=== PATIENT | female | born 1945 | race Caucasian/White ===

== ENCOUNTER 2017-10-17 11:53 | Emergency (ER) | payer MEDICARE, OTHER ==
[~2017-10-17] VITALS: Ht 165.1 cm; Wt 69.0 kg
--- OUTSIDE RECORDS SUMMARY | ~2017-10-17 | XMS | Clinical Summary ---
Demographics + + + | Address | [address] | | | [place] [address] | + + + | Home Phone | | + + + | Preferred Language | Unknown | + + + | Marital Status | Unknown | + + + | Lutheran Affiliation | Unknown | + + + | Race | Unknown | + + + | Ethnic Group | Unknown | + + + Author + + + | Author | [facility] | [facility] | + + + | Organization | [facility] | | | and [place] | + + + | Address | Unknown | + + + | Phone | Unavailable | + + + Care Team Providers + +------+ + | Care Radiology Supervisor Name | Role | Phone | + +------+ + PP | Unavailable | + +------+ + Allergies Not on File Current Medications Not on file Active Problems Not on file Social History + +-------+ +--------+------+ | Tobacco Use | Types | Packs/Day | Years | Date | | | | | Used | | + +-------+ +--------+------+ | Never Assessed | | | | | + +-------+ +--------+------+ + + + | Sex Assigned at | Date Recorded | | | | + + + | Not on file | | + + + Plan of Treatment + + + + + | Health Maintenance | Due Date | Last Done | Comments | + + + + + | Hepatitis C | | | | | Screening | 6 | | | + + + + + | Vaccine: | | | | | Dtap/Tdap/Td (1 - | 5 | | | | Tdap) | | | | + + + + + | BREAST CANCER | | | | | SCREENING (MAMM Q2 | 6 | | | | YEARS 50-74) | | | | + + + + + | COLON CANCER | | | | | SCREENING | 6 | | | | (COLONOSCOPY EVERY | | | | | 10 YEARS 50-75) | | | | + + + + + | Vaccine: | | | | | Pneumococcal 65+ | 1 | | | | Low/Medium Risk (1 | | | | | of 2 - PCV13) | | | | + + + + + | Vaccine: Influenza | | | | | (Season Ended) | 8 | | | + + + + + Results Not on filefrom Last 3 Months"
--- OUTSIDE RECORDS SUMMARY | ~2017-10-17 | XMS | Clinical Summary ---
Demographics + + + | Address | [address] | | | [place] [address] | + + + | Home Phone | | + + + | Preferred Language | Unknown | + + + | Marital Status | Unknown | + + + | Yazdanism Affiliation | Unknown | + + + | Race | Unknown | + + + | Ethnic Group | Unknown | + + + Author + + + | Author | [facility] | | | [facility] | + + + | Organization | [facility] | | | and [place] | + + + | Address | Unknown | + + + | Phone | Unavailable | + + + Care Team Providers + +------+ + | Care Facilities Maintenance Technician Name | Role | Phone | + [...]
--- OUTSIDE RECORDS SUMMARY | ~2017-10-17 | XMS | Clinical Summary ---
Demographics + + + | Address | [address] | | | [place] [address] | + + + | Home Phone | | + + + | Preferred Language | Unknown | + + + | Marital Status | | + + + | Jehovah'S Witness Affiliation | Unknown | + + + [...] | + + + + + | DREW BARCLAY | [place] | [place] | | + + + + + Care Team Providers + +------+ + | Care Track Fitter Name | Role | Phone | + +------+ + PP | Unavailable | + +------+ + Source Comments ALA[facility] is fully live on both [facility] and [facility] InPatient.[facility] Allergies Not on File Current Medications Not [...] | + + + + + | INFLUENZA VACCINE | | | | | (FLU SHOT) | 8 | | | + + + + + Results Not on filefrom Last 3 Months"
--- OUTSIDE RECORDS SUMMARY | ~2017-10-17 | XMS | Clinical Summary ---
Demographics + + + | Address | [address] | | | [place] [address] | + + + | Home Phone | | + + + | Preferred Language | Unknown | + + + | Marital Status | | + + + | Scientology Affiliation | Unknown | + + + [...] Team Providers + +------+ + | Care Morning Nanny Name | Role | Phone | + +------+ + PP | Unavailable | + +------+ + Source Comments ALAINA is fully live on both [facility] Ambulatory and [facility] InPatient.[facility] Allergies Not on File Current Medications Not [...]
[~2017-10-17 11:53] MED LIST: AMITRIPTYLINE H10 MG PO; AMITRIPTYLINE H25 MG PO; CALCIUM 600 +1 EAC1 PO; CALCIUM500 M1 PO; CLONIDINE HCL0.1 MG PO; EXCEDRIN MIGRA1 EAC2 PO; FEROSUL325 MG PO; GLUCOSAMINE &1 EAC1 PO; HYDROCODON-ACE1 EA11 PO; HYDROMORPHONE HC4 MG PO; LACTULOSE10 GM/15 M PO; LEVOTHYROXINE88 MCG PO; MACUVITE WITH1 EACH PO; MILK OF MA400 MG/5 M PO; MIRALAX17 GM PO; MULTI VITAMIN1 EACH PO; NUCYNTA50 MG PO; OMEGA 3 1,0001 EACH PO; OMEGA-3 + D SO1 EACH PO; OXYCODONE HCL5 MG PO; PROPRANOLOL HCL40 MG PO; TRAMADOL HCL50 MG PO; VISTARIL25 MG PO; VITAMIN C500 M1 PO; VITAMIN D1000 UNIT PO; XARELTO10 MG PO
[2017-10-17] MEDS ORDERED: TOPAMAX200 MG PO (12:16)
[2017-10-17] MEDS ORDERED: CIPRO250 MG PO (12:49)
== END 2017-10-17 13:06 | disposition home or self-care (01) ==
LOC: ED 11:53
DX: N39.0 Urinary tract infection, site not specified (principal); R31.9 Hematuria, unspecified; Z88.2 Allergy status to sulfonamides; Z88.1 Allergy status to other antibiotic agents; Z88.8 Allergy status to other drugs, medicaments and biological substances; Z91.011 Allergy to milk products; Z79.899 Other long term (current) drug therapy
CPT/HCPCS: 81001; 99283

== ENCOUNTER 2019-05-28 19:46 | Emergency (ER) | payer MEDICARE, OTHER ==
[~2019-05-28] VITALS: Ht 165.1 cm; Wt 69.0 kg
--- OUTSIDE RECORDS SUMMARY | ~2019-05-28 | XMS | Clinical Summary ---
Demographics + + + | Address | [address] | | | [place] [address] | + + + | Home Phone | | + + + | Preferred Language | Unknown | + + + | Marital Status | | + + + | Taoist Affiliation | 1013 | + + + | Race | Unknown | + + + | Ethnic Group | Unknown | + + + Author + + + | Author | [facility] | | | and [place] | + + + | Organization | [facility] | | | and [place] | + + + | Address | Unknown | + + + | Phone | Unavailable | + + + Support + + + + + | Name | Relationship | Address | Phone | + + + + + | Mak Ramires | ECON | [address], | | | | | [place] [address] | | + + + + + Care Team Providers + +------+ + | Care Software Test Analyst Name | Role | Phone | + +------+ + | Mehrdad Avila DO | PCP | | + +------+ + Allergies + + + + + + | Active Allergy | Reactions | Severity | Noted | Comments | | | | | Date | | + + + + + + | Food | Shortness Of Breath, | High | 09/08/19 | PEPPERS | | | Swelling, Cough | | 19 | | + + + + + + | Neomycin | Dermatitis, Other | High | | Inflammation | | | (See Comments) | | | | + + + + + + | Oxycodone | Nausea And Vomiting | Medium | 09/09/19 | | | | | | 12 | | + + + + + + | Scopolamine | Other (See Comments) | High | 09/08/19 | Mental changes | | | | | 19 | | + + + + + + | Sulfa Antibiotics | Anaphylaxis | High | | | + + + + + + Medications + + + +---------+------+------+-------+ | Medication | Sig | Dispensed | Refills | Star | End | Statu | | | | | | t | Date | s | | | | | | Date | | | + + + +---------+------+------+-------+ | amitriptyline | Take 2.5 mg by mouth | | 0 | | | Activ | | (ELAVIL) 10 mg | nightly. | | | | | e | | tablet | | | | | | | + + + +---------+------+------+-------+ | Calcium Carbonate | Take by mouth. | | 0 | | | Activ | | (CALCIUM 600 PO) | | | | | | e | + + + +---------+------+------+-------+ | Multiple | Take by mouth. | | 0 | | | Activ | | Vitamins-Minerals | | | | | | e | | (CENTRUM SILVER | | | | | | | | 50+WOMEN PO) | | | | | | | + + + +---------+------+------+-------+ | | Take 1 tablet by | | 0 | | | Activ | | aspirin-acetaminophe | mouth every 6 hours | | | | | e | | n-caffeine (EXCEDRIN | as needed for Pain. | | | | | | | MIGRAINE) | | | | | | | | 250-250-65 MG per | | | | | | | | tablet | | | | | | | + + + +---------+------+------+-------+ | Multiple | Take by mouth. | | 0 | | | Activ | | Vitamins-Minerals | | | | | | e | | ([facility] | | | | | | | | FORMULA PO) | | | | | | | + + + +---------+------+------+-------+ | polyethylene | Take 17 g by mouth | | 0 | | | Activ | | glycol (MIRALAX) | Daily as needed for | | | | | e | | powder | Constipation. | | | | | | + + + +---------+------+------+-------+ | [place]-3 Fatty | Take by mouth. | | 0 | | | Activ | | Acids (PRO NUTRIENTS | | | | | | e | | OMEGA 3) 332.5 MG | | | | | | | | CPDR | | | | | | | + + + +---------+------+------+-------+ | topiramate | Take 50 mg by mouth | | 0 | | | Activ | | (TROKENDI XR) 25 mg | Daily. | | | | | e | | ER capsule | | | | | | | + + + +---------+------+------+-------+ | cholecalciferol | Take 1,000 Units by | | 0 | | | Activ | | (CHOLECALCIFEROL) | mouth Daily. | | | | | e | | 1000 units TABS | | | | | | | + + + +---------+------+------+-------+ | ciclopirox | Apply topically | | 0 | 02/0 | | Activ | | (PENLAC) 8 % | nightly. | | | 11/08 | | e | | solution | | | | 19 | | | + + + +---------+------+------+-------+ | propranolol | take 120 mg by mouth | | 0 | | | Activ | | (INDERAL) 40 mg | daily | | | | | e | | tablet | | | | | | | + + + +---------+------+------+-------+ | terbinafine | Take 250 mg by mouth | | 0 | | | Activ | | (LAMISIL) 250 MG | Daily. Take for | | | | | e | | tablet | seven days every | | | | | | | | three months. | | | | | | + + + +---------+------+------+-------+ | levothyroxine | Take 1 tablet by | 90 | 3 | 11/20 | | Activ | | (SYNTHROID) 100 mcg | mouth every morning | tablet | | 02/08 | | e | | tabletIndications: | (before breakfast). | | | 19 | | | | Hypothyroidism, | | | | | | | | unspecified type | | | | | | | + + + +---------+------+------+-------+ | fluticasone | 1 spray by Nasal | 15.8 mL | 11 | 06/ | | Activ | | (FLONASE) 50 | route Daily. | | | 8/20 | | e | | mcg/nasal spray | | | | 19 | | | + + + +---------+------+------+-------+ | Levocetirizine | Take by mouth | | 0 | | | Activ | | Dihydrochloride | Daily. | | | | | e | | (XYZAL PO) | | | | | | | + + + +---------+------+------+-------+ | FLUoxetine | Take 1 capsule by | 90 | 1 | 10/0 | | Activ | | (PROZAC) 10 mg | mouth daily (with | capsule | | 3/20 | | e | | capsuleIndications: | breakfast). | | | 19 | | | | Seasonal affective | | | | | | | | disorder (HCC) | | | | | | | + + + +---------+------+------+-------+ Active Problems + + + | Problem | Noted Date | + + + | Seasonal affective disorder | 09/07/2018 | + + + | Hypothyroidism | 09/07/2018 | + + + | Anemia | 09/07/2018 | + + + | Migraine headache | | + + + | Osteoporosis, post-menopausal | | + + + | Familial tremor | | + + + | Allergic rhinitis | | + + + Encounters +--------+---------+ + + + | Date | Type | Specialty | Care Team | Description | +--------+---------+ + + + | 03/24/ | Office | Primary Care | Mehrdad Avila | Seasonal affective | | 2019 | Visit | | E, DO | disorder (HCC) | | | | | | (Primary Dx); | | | | | | Immunization due | +--------+---------+ + + + from Last 3 Months Immunizations + + + + | Name | Administration Dates | Next Due | + + + + | HEP B, 3 DOSE | 03/25/2005, 12/30/2004 | | | (ADULT) | | | + + + + | INFLUENZA 66 Y OR >, | 03/26/2019, 03/18/2018, 04/10/2016, | | | TRIVALENT HIGH-DOSE | 03/08/2014 | | + + + + | INFLUENZA PF | 02/17/2017 | | | QUAD(PED/ADOL/ADULT) | | | | ,PSKT or VIAL | | | + + + + | INFLUENZA TRIV | 04/27/2015, 03/16/2013, 03/25/2012, | | | W/PRES(PED/ADOL/ADUL | 04/28/2011 | | | T),MULTIDOSE | | | + + + + | INFLUENZA, | 02/17/2017, 04/27/2015, 03/16/2013, | | | UNSPECIFIED | 03/25/2012, 04/28/2011, 04/05/2010, | | | FORMULATION | 02/21/2009, 04/11/2008, 04/03/2007, | | | | 03/25/2006, 05/07/2005 | | + + + + | PNEUMOCOCCAL | 12/12/2014 | | | CONJUGATE 13-VALENT | | | | (PCV13) | | | + + + + | PNEUMOCOCCAL | 04/28/2011 | | | POLYSACCHARIDE | | | | 23-VALENT (PPSV23) | | | + + + + | TD PF (2 LF TETANUS) | 09/24/1999 | | | (ADOL/ADULT) | | | + + + + | TDAP, (ADOL/ADULT) | 02/17/2017 | | + + + + | TYPHOID, VICPS | 12/30/2004 | | + + + + | YELLOW FEVER, SQ | 12/30/2004 | | | (LIVE) | | | + + + + | ZOSTER NON-LIVE | 12/19/2017, 10/10/2017 | | | (SHINGRIX) | | | + + + + | ZOSTER, 1 DOSE | 12/02/2006 | | | (ZOSTAVAX) | | | + + + + Family History + + +------+ + | Medical History | Relation | Name | Comments | + + +------+ + | Heart disease | Father | | | + + +------+ + | Stroke | [place] | | [place] | + + +------+ + | Diabetes | Maternal | | | | | Grandmoth | | | | | er | | | + + +------+ + | Alzheimer's disease | Mother | | | + + +------+ + | Other (see comment) | Sister | | spinal stenosis | + + +------+ + + +------+ + + | Relation | Name | Status | Comments | + +------+ + + | Father | | | | + +------+ + + | Maternal Grandmother | | | | + +------+ + + | Mother | | | | + +------+ + + | Sister | | | | + +------+ + + Social History + +-------+ +--------+------+ | Tobacco Use | Types | Packs/Day | Years | Date | | | | | Used | | + +-------+ +--------+------+ | Never Smoker | | 0 | 0 | | + +-------+ +--------+------+ + +---+---+---+ | Smokeless Tobacco: | | | | | Never Used | | | | + +---+---+---+ + + | Tobacco Cessation: Counseling Given: No | + + + + +---------+ + | Alcohol Use | Drinks/Week | oz/Week | Comments | + + +---------+ + | No | 0 Glasses of wine | 0.0 | | | | 0 Cans of beer 0 | | | | | Shots of liquor 0 | | | | | Standard drinks or | | | | | equivalent | | | + + +---------+ + + + + + | Alcohol Habits | Answer | Date Recorded | + + + + | How often do you have a drink containing | Never | 03/24/2019 | | alcohol? | | | + + + + | How many drinks containing alcohol do you | Not asked | | | have on a typical day when you are | | | | drinking? | | | + + + + | How often do you have six or more drinks on | Never | 03/24/2019 | | one occasion? | | | + + + + + + + | Sex Assigned at | Date Recorded | | | | + + + | Female | 03/20/2019 1:22 PM PDT | + + + + + + + | Job Start Date | Occupation | Industry | + + + + | Not on file | Not on file | Not on file | + + + + + + + + | Travel History | Travel Start | Travel End | + + + + + + | No recent travel history available. | + + Last Filed Vital Signs + + + + + | Vital Sign | Reading | Time Taken | Comments | + + + + + | Blood Pressure | 132/74 | 03/24/2019 8:29 AM | Med cuff, right arm | | | | PDT | | + + + + + | Pulse | 50 | 03/24/2019 8:29 AM | R | | | | PDT | | + + + + + | Temperature | - | - | | + + + + + | Respiratory Rate | 16 | 03/24/2019 8:29 AM | | | | | PDT | | + + + + + | Oxygen Saturation | 98% | 03/24/2019 8:29 AM | RA | | | | PDT | | + + + + + | Inhaled Oxygen | - | - | | | Concentration | | | | + + + + + | Weight | 70.4 kg (155 lb 3.2 | 03/24/2019 8:29 AM | | | | oz) | PDT | | + + + + + | Height | 166 cm (5' 5.35") | 03/24/2019 8:29 AM | Stated | | | | PDT | | + + + + + | Body Mass Index | 25.55 | 03/24/2019 8:29 AM | | | | | PDT | | + + + + + Plan of Treatment + + + + + | Health Maintenance | Due Date | Last Done | Comments | + + + + + | Hepatitis C | | | | | Screening | 6 | | | + + + + + | Breast Cancer | | | | | Screening | 1 | | | + + + + + | Adult Annual | | | | | Wellness Visit | 9 | | | + + + + + | Primary Care | | 03/24/2019, 09/07/2018 | | | Outreach (Low Risk) | 1 | | | + + + + + | Colorectal Cancer | | 06/26/2014, 06/26/2014 | | | Screening | 5 | | | | (Colonoscopy) | | | | + + + + + | Vaccine: | | 02/17/2017, 09/24/1999 | | | Dtap/Tdap/Td (2 - | 7 | | | | Td) | | | | + + + + + | Vaccine: | Completed | 12/12/2014, 04/28/2011 | | | Pneumococcal 65+ | | | | + + + + + | Vaccine: Influenza | Completed | 03/26/2019, 03/18/2018, | | | | | 02/17/2017, Additional history | | | | | exists | | + + + + + Results Not on filefrom Last 3 Months Insurance + +--------+ +--------+ +---------+--------+ | Payer | Benefi | Subscriber | Effect | Phone | Address | Type | | | t Plan | ID | leah | | | | | | / | | Dates | | | | | | Group | | | | | | + +--------+ +--------+ +---------+--------+ | MEDICARE | MEDICA | [id number] | 01/21/20 | [phone] | | Medica | | | RE | | 11-Pre | 5 | | re | | | PART A | | sent | | | | | | AND B | | | | | | + +--------+ +--------+ +---------+--------+ | [employer] | MODA | [id number] | | | | Medica | | | HEALTH | | 019-Pr | | | re | | | MDCR | | esent | | | | + +--------+ +--------+ +---------+--------+ + +--------+ +--------+ + + | Guarantor Name | Accoun | Relation to | Date | Phone | Billing Address | | | t Type | Patient | of | | | | | | | | | | + +--------+ +--------+ + + | Antonia Ramires | Person | Self [birth year] | [address] | | | al/Fam | | 1945 | [phone] | [place] [address] | | | darell | | | 0 (Home) | | + +--------+ +--------+ + + Advance Directives + + + + + | Type | Date Recorded | Patient | Explanation | | | | Senior Field Service Engineer | | + + + + + | Power of | | | | | Thread Singer | | | | + + + + + | Advance | 09/07/2018 10:02 | | | | Directive | AM | | | + + + + +
--- OUTSIDE RECORDS SUMMARY | ~2019-05-28 | XMS | Encounter Summary ---
Demographics + + + | Address | [address] | | | [place] [address] | + + + | Home Phone | | + + + | Preferred Language | Unknown | + + + | Marital Status | | + + + | Catholic Affiliation | 1013 | + + + | Race | Unknown | + + + | Ethnic Group | Unknown | + + + Author + + + | Author | [facility] | | | and [place] | + + + | Organization | [facility] | | | and [place] | + + + | Address | Unknown | + + + | Phone | Unavailable | + + + Support + + + + + | Name | Relationship | Address | Phone | + + + + + | Mak Ramires | ECON | [address], | | | | | [place] [address] | | + + + + + Care Team Providers + +------+ + | Care Web Press Operator Helper Offset Name | Role | Phone | + +------+ + PCP | Unavailable | + +------+ + Encounter Details +--------+ + + + + | Date | Type | Department | Care Team | Description | +--------+ + + + + | 03/15/ | Hospital | [facility] | | | | 1997 | Encounter | MED CTR GENERIC OP | | | | | | CONV DEPT [address] | | | | | | [place], | | | | | | [place] [address] | | | | | | [phone] | | | +--------+ + + + + Social History + +-------+ +--------+------+ | Tobacco Use | Types | Packs/Day | Years | Date | | | | | Used | | + +-------+ +--------+------+ | Never Assessed | | | | | + +-------+ +--------+------+ + + + | Sex Assigned at | Date Recorded | | | | + + + | Female | | + + + + + [...] recent travel history available. | + + documented as of this encounter Plan of Treatment Not on filedocumented as of this encounter Visit Diagnoses Not on filedocumented in this encounter"
--- OUTSIDE RECORDS SUMMARY | ~2019-05-28 | XMS | Encounter Summary ---
Demographics + + + | Address | [address] | | | [place] [address] | + + + | Home Phone | | + + + | Preferred Language | Unknown | + + + | Marital Status | | + + + | Roman Catholic Affiliation | 1013 | + + + | Race | Unknown | + + + | Ethnic Group | Unknown | + + + Author + + + | Author | [facility] | | | and [place] | + + + | Organization | [facility] | | | and [place] | + + + | Address | Unknown | + + + | Phone | Unavailable | + + + Support + + + + + | Name | Relationship | Address | Phone | + + + + + | Mak Ramires | ECON | [address], | | | | | [place] [address] | | + + + + + Care Team Providers + +------+ + | Care Ornamental Brick Installer Name | Role | Phone | + +------+ + PCP | Unavailable | + +------+ + Encounter Details +--------+ + + + + | Date | Type | Department | Care Team | Description | +--------+ + + + + | 11/23/ | [facility] | [facility] | [place], | | | 1998 | Encounter | MED CTR GENERIC OP | MD [address] [facility] | | | | | CONV DEPT [address] | [place] | | | | | [place], | [address] | | | | | [place] [address] | | | | | | [phone] | | | +--------+ + + + [...]
--- OUTSIDE RECORDS SUMMARY | ~2019-05-28 | XMS | Encounter Summary ---
Demographics + + + | Address | [address] | | | [place] [address] | + + + | Home Phone | | + + + | Preferred Language | Unknown | + + + | Marital Status | | + + + | Evangelical Affiliation | 1013 | + + + | Race | Unknown | + + + | Ethnic Group | Unknown | + + + Author + + + | Author | [facility] | | | and [place] | + + + | Organization | [facility] | | | and [place] | + + + | Address | Unknown | + + + | Phone | Unavailable | + + + Support + + + + + | Name | Relationship | Address | Phone | + + + + + | Mak Ramires | ECON | [address], | | | | | [place] [address] | | + + + + + Care Team Providers + +------+ + | Care Line Server Name | Role | Phone | + +------+ + | Mehrdad Avila DO | PCP | | + +------+ + Encounter Details +--------+ + + + + | Date | Type | Department | Care Team | Description | +--------+ + + + + | 09/03/ | Abstract | [facility] | [place] | | | 2019 | | [facility] | | | | | | [facility] [address] | | | | | | [address] [place], | | | | | | [place] [address] | | | | | | [phone] | | | +--------+ + + + + Social History + +-------+ +--------+------+ | Tobacco Use | Types | Packs/Day | Years | Date | | | | | Used | | + +-------+ +--------+------+ | Never Smoker | | | | | + +-------+ +--------+------+ + +---+---+---+ | Smokeless Tobacco: | | | | | Never Used | | | | + +---+---+---+ + + +---------+ + | Alcohol Use | Drinks/Week | oz/Week | Comments | + + +---------+ + | No | | | | + + +---------+ + + + + | Sex Assigned [...]
--- OUTSIDE RECORDS SUMMARY | ~2019-05-28 | XMS | Encounter Summary ---
Demographics + + + | Address | [address] | | | [place] [address] | + + + | Home Phone | | + + + | Preferred Language | Unknown | + + + | Marital Status | | + + + | Restorationism Affiliation | 1013 | + + + | Race | Unknown | + + + | Ethnic Group | Unknown | + + + Author + + + | Author | [facility] | | | and [place] | + + + | Organization | [facility] | | | and [place] | + + + | Address | Unknown | + + + | Phone | Unavailable | + + + Support + + + + + | Name | Relationship | Address | Phone | + + + + + | Mak Ramires | ECON | [address], | | | | | [place] [address] | | + + + + + Care Team Providers + +------+ + | Care Commercial Sales Representative Name | Role | Phone | + +------+ + PCP | Unavailable | + +------+ + Encounter Details +--------+ + + + + | Date | Type | Department | Care Team | Description | +--------+ + + + + | 11/23/ | [facility] | [facility] | [place], | | | 1998 | Encounter | MED CTR GENERIC OP | MD [address] [facility] | | | | | CONV DEPT [address] | [place] | | | | | [place], | [address] | | | | | [place] [address] | | | | | | [phone] | | | +--------+ + + + [...]
--- OUTSIDE RECORDS SUMMARY | ~2019-05-28 | XMS | Encounter Summary ---
Demographics + + + | Address | [address] | | | [place] [address] | + + + | Home Phone | | + + + | Preferred Language | Unknown | + + + | Marital Status | | + + + | Hinduism Affiliation | 1013 | + + + | Race | Unknown | + + + | Ethnic Group | Unknown | + + + Author + + + | Author | [facility] | | | and [place] | + + + | Organization | [facility] | | | and [place] | + + + | Address | Unknown | + + + | Phone | Unavailable | + + + Support + + + + + | Name | Relationship | Address | Phone | + + + + + | Mak Ramires | ECON | [address], | | | | | [place] [address] | | + + + + + Care Team Providers + +------+ + | Care Location Analyst Name | Role | Phone | + +------+ + | Mehrdad Avila DO | PCP | | + +------+ + Reason for Visit + + + | Reason | Comments | + + + | Lab Results | | + + + Encounter Details +--------+ + + + + | Date | Type | Department | Care Team | Description | +--------+ + + + + | 12/07/ | Telephone | [facility] | Mehrdad Avila | Lab Results | | 2019 | | [facility] | E, DO [address] | | | | | MEDICAL CLIN[address] | [place], [place] | | | | | [address] [place], | [address] | | | | | [place] [address] | [phone] | | | | | [phone] | | | +--------+ + + + [...]
--- OUTSIDE RECORDS SUMMARY | ~2019-05-28 | XMS | Encounter Summary ---
Demographics + + + | Address | [address] | | | [place] [address] | + + + | Home Phone | | + + + | Preferred Language | Unknown | + + + | Marital Status | | + + + | Yazidi Affiliation | 1013 | + + + | Race | Unknown | + + + | Ethnic Group | Unknown | + + + Author + + + | Author | [facility] | | | and [place] | + + + | Organization | [facility] | | | and [place] | + + + | Address | Unknown | + + + | Phone | Unavailable | + + + Support + + + + + | Name | Relationship | Address | Phone | + + + + + | Mak Ramires | ECON | [address], | | | | | [place] [address] | | + + + + + Care Team Providers + +------+ + | Care Termite Control Servicer Name | Role | Phone | + +------+ + PCP | Unavailable | + +------+ + Encounter Details +--------+ + + + + | Date | Type | Department | Care Team | Description | +--------+ + + + + | 02/20/ | Hospital | [facility] | | | | 1997 | Encounter | MED CTR GENERIC OP | | | | | | CONV DEPT [address] | | | | | | [place], | | | | | | [place] [address] | | | | | | [phone] | | | +--------+ + + + [...]
--- OUTSIDE RECORDS SUMMARY | ~2019-05-28 | XMS | Clinical Summary ---
Demographics + + + | Address | [address] | | | [place] [address] | + + + | Home Phone | | + + + | Preferred Language | Unknown | + + + | Marital Status | | + + + | Latter Day Affiliation | Unknown | + + + | Race | White | + + + | Ethnic Group | Not or | + + + Author + + + | Organization | Unknown | + + + | Address | Unknown | + + + | Phone | Unavailable | + + + Support + + + + + | Name | Relationship | Address | Phone | + + + + + | Mak Ramires | LILIBETH | [place] | | + + + + + Care Team Providers + +------+ + | Care Book Mender Name | Role | Phone | + +------+ + PCP | Unavailable | + +------+ + Source Comments ALAINA is fully live on both [facility] Ambulatory and [facility] InPatient.[facility] Allergies Not on File Medications Not on file Active Problems Not [...] on file | | + + + + + [...] | + + Last Filed Vital Signs Not on file Plan of Treatment + + + + + | Health Maintenance | Due Date | Last Done | Comments | + + + + + | Pneumococcal | | | | | vaccination (1 of 2 | 1 | | | | - PCV13) | | | | + + + + + | Influenza (Flu) | | | | | vaccination (#1) | 9 | | | + + + + + Results Not on filefrom Last 3 Months"
--- OUTSIDE RECORDS SUMMARY | ~2019-05-28 | XMS | Encounter Summary ---
Demographics + + + | Address | [address] | | | [place] [address] | + + + | Home Phone | | + + + | Preferred Language | Unknown | + + + | Marital Status | | + + + | Presybeterian Affiliation | 1013 | + + + | Race | Unknown | + + + | Ethnic Group | Unknown | + + + Author + + + | Author | [facility] | | | and [place] | + + + | Organization | [facility] | | | and [place] | + + + | Address | Unknown | + + + | Phone | Unavailable | + + + Support + + + + + | Name | Relationship | Address | Phone | + + + + + | Mak Ramires | ECON | [address], | | | | | [place] [address] | | + + + + + Care Team Providers + +------+ + | Care Sales And Distribution Clerk Name | Role | Phone | + +------+ + PCP | Unavailable | + +------+ + Encounter Details +--------+ + + + + | Date | Type | Department | Care Team | Description | +--------+ + + + + | 03/26/ | [facility] | [facility] | Mak Johnson MD | | | 2006 | Encounter | MED CTR GENERIC OP | [address] | | | | | CONV DEPT [address] | [address] | | | | | [place], | [address] | | | | | [place] [address] | | | | | | [phone] | | | +--------+ + + + [...]
--- OUTSIDE RECORDS SUMMARY | ~2019-05-28 | XMS | Encounter Summary ---
Demographics + + + | Address | [address] | | | [place] [address] | + + + | Home Phone | | + + + | Preferred Language | Unknown | + + + | Marital Status | | + + + | Mormonism Affiliation | Unknown | + + + | Race | White | + + + | Ethnic Group | Not or | + + + Author + + + | Author | [facility] | + + + | Organization | [facility] | + + + | Address | Unknown | + + + | Phone | Unavailable | + + + Support + + + + + | Name | Relationship | Address | Phone | + + + + + | Mak Ramires | LILIBETH | [place] | | + + + + + Care Team Providers + +------+ + | Care Keg Filler Name | Role | Phone | + +------+ + PCP | Unavailable | + +------+ + Encounter Details +--------+ + + + + | Date | Type | Department | Care Team | Description | +--------+ + + + + | 10/27/ | Office | [facility] | Note, Outpatient | Progress Note | | 2000 | Visit-Trans | MEDICINE | Clinic | | | | cribed | | | | +--------+ + + + [...] + + documented as of this encounter Progress Notes Interface, Insurance Healthcare Representative In - 05/12/2006 5:09 AM [facility] DATE: 10/28/1999 ENT CLINIC SUBJECTIVE: Mrs. Ramires a 54-year-old woman with history of a severe autophony. She states that she hears herself breathing much more severely than normal. It is a roaring sound particularly on the right side. Her voices as well sounds more harsh, and she feels she cannot sing anymore because of the disturbance of this sound. She states she sounds like a smoker. These symptoms have been going for a number of years, and she first noted it with of her second child. She was given some B12 at that time, and it went away for a short while but returned. She does not have her symptoms basically when she is sitting down or at night lying down. They will go away immediately within an hour after lying down and generally did not come on until later in the morning or late p.m. They are only present when she is standing up. On days when she does a lot of sitting and not much standing, she does not have symptoms as severely, but on days when she is up and about walking or standing for long periods of time, the autophony becomes more severe. She denies any weight loss. She gives no history of ear disease. She has had no dizziness. She has had, perhaps, mild hearing loss on the right. The sensation, however, is present in both ears. FAMILY HISTORY: Her family history is negative. She gives no history of head injury or noise trauma. REVIEW OF SYSTEMS: She has had no cardiac difficulties. She had asthma particularly as a child, almost no symptoms presently. 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 She took it regularly for years secondary to nose bleeds. She has had no gastrointestinal or genitourinary complaints. She does have some back pain and has an extra vertebra with some disk problems. MEDICATIONS: Relafen 750 mg twice a day, Prempro 0.625 mg once a day, levothyroxine 0.15 mg once a day, and amitriptyline 20 mg once a day. 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 ALLERGIES: SULFA YIELDS A RASH AND NEOSPORIN CAUSES INFLAMMATORY REACTION. FOOD ALLERGIES: NONE. POLLEN ALLERGIES: NONE. HABITS: She takes no aspirin. She does not smoke and has not. No alcohol and no caffeine. PHYSICAL EXAMINATION: GENERAL: An alert and very pleasant woman in no acute distress. HEENT: Ears: Tympanic membranes are intact and normal. They were visualized under the operating microscope. She had previous tubes placed earlier this year by Dr. De Leon, and the right ear still has a small crust over the area of the myringotomy site. The left ear is completely healed. Nose is clear and constricted. Mouth: There are no oral lesions. Indirect examination of the nasopharynx is very difficult and not clear. Indirect examination of the larynx is brief but appeared to be normal. NECK: There is no unusual adenopathy. Thyroid is not enlarged. NEUROLOGICAL: Cranial nerves II through XII are intact and normal. LABORATORY STUDIES: Nasopharyngoscopy was done after local Xylocaine anesthesia with passing of the scope down the left side. The eustachian tube was visible on both sides. It appeared to be clean without lesions, scarring, or other abnormality. There was scarring in the nasopharynx. IMPRESSION: Autophony, etiology basically undetermined. RECOMMENDATION: Because the patient's complaints are relatively minor and that they go away when she sits or lays down almost completely and relatively rapidly, I think that we would just try either estrogen nasal spray or the SSKI. I plan to go ahead initially with the SSKI with perhaps to switch later. This was discussed at length with her, and she was given a prescription. Ford Casper M.D. CARMELO / GWENDOLYN [id number] / [id number] / [id number] / [id number] signed by Interface, Insurance Healthcare Representative In at 05/12/2006 5:09 AM PSTdocume nted in this encounter Plan of Treatment Not on filedocumented as of this encounter Visit Diagnoses Not on filedocumented in this encounter"
--- OUTSIDE RECORDS SUMMARY | ~2019-05-28 | XMS | Clinical Summary ---
Demographics + + + | Address | [address] | | | [place] [address] | + + + | Home Phone | | + + + | Preferred Language | Unknown | + + + | Marital Status | | + + + | Holiness Affiliation | Unknown | + + + [...] Team Providers + +------+ + | Care Vending Machine Technician Name | Role | Phone | + +------+ + PCP | Unavailable | + +------+ + Source Comments ALAINA is fully live on both [facility] Ambulatory and [facility] InPatient.[facility] Allergies Not on File Medications [...]
--- OUTSIDE RECORDS SUMMARY | ~2019-05-28 | XMS | Encounter Summary ---
Demographics + + + | Address | [address] | | | [place] [address] | + + + | Home Phone | | + + + | Preferred Language | Unknown | + + + | Marital Status | | + + + | Hoahaoism Affiliation | 1013 | + + + | Race | Unknown | + + + | Ethnic Group | Unknown | + + + Author + + + | Author | [facility] | | | and [place] | + + + | Organization | [facility] | | | and [place] | + + + | Address | Unknown | + + + | Phone | Unavailable | + + + Support + + + + + | Name | Relationship | Address | Phone | + + + + + | Mak Ramires | ECON | [address], | | | | | [place] [address] | | + + + + + Care Team Providers + +------+ + | Care Molasses Coloring Operator Name | Role | Phone | + +------+ + PCP | Unavailable | + +------+ + Encounter Details +--------+ + + + + | Date | Type | Department | Care Team | Description | +--------+ + + + + | 06/26/ | Hospital | [facility] | | | | 1999 | Encounter | MED CTR XRAY [address] | | | | | | [place] | | | | | | [place] [address] | | | | | | [phone] | | | +--------+ + + + [...]
--- OUTSIDE RECORDS SUMMARY | ~2019-05-28 | XMS | Encounter Summary ---
Demographics + + + | Address | [address] | | | [place] [address] | + + + | Home Phone [...] + + + | Author | [facility] | + + + | Organization | [facility] | + + + | Address | Unknown | + + + | Phone | Unavailable | + + + Support + + + + + | Name | Relationship | Address | Phone | + + + + + | Mak Ramires | LILIBETH | [place] | | + + + + + Care Team Providers + +------+ + | Care Master Yacht Name | Role | Phone | + +------+ + PCP | Unavailable | + +------+ + Encounter Details +--------+ + + + + | Date | Type | Department | Care Team | Description | +--------+ + + + + | 03/11/ | Office | [facility] | Note, [...] as of this encounter Progress Notes Interface, Knit Goods Washer In - 05/04/2006 5:06 AM PSTCLINIC DATE: 03/11/2000 FOLLOWUP NOTE The patient has been seen before for autophony. She was started on SSKI earlier this year. She did not get any improvement and is returning at this particular time because she continues to have problems with her own voice being distorted, being very loud, her breathing being disturbing, and some distortion of hearing. It is worse when she is active or late in the day. We discussed the other alternatives for treatment at some length with her. I thought that we might try today just using saline irrigations in the morning followed by confectionary powdered sugar and try this for about a two-week period. If this does not help, I think we will start with estrogen spray and see if this will give her enough relief to avoid any injections or surgery. She is to call us in two weeks. Ford Casper M.D. CARMELO / GWENDOLYN [id number] / [id number] / [id number] / [id number] signed by Interface, Knit Goods Washer In at 05/04/2006 5:06 AM PSTdocume nted in this encounter Plan of Treatment Not on filedocumented as of this encounter Visit Diagnoses Not on filedocumented in this encounter"
--- OUTSIDE RECORDS SUMMARY | ~2019-05-28 | XMS | Encounter Summary ---
Demographics + + + | Address | [address] | | | [place] [address] | + + + | Home Phone | | + + + | Preferred Language | Unknown | + + + | Marital Status | | + + + | Jewish Affiliation | 1013 | + + + | Race | Unknown | + + + | Ethnic Group | Unknown | + + + Author + + + | Author | [facility] | | | and [place] | + + + | Organization | [facility] | | | and [place] | + + + | Address | Unknown | + + + | Phone | Unavailable | + + + Support + + + + + | Name | Relationship | Address | Phone | + + + + + | Mak Ramries | ECON | [address], | | | | | [place] [address] | | + + + + + Care Team Providers + +------+ + | Care Graining Press Operator Name | Role | Phone | [...] Lab Results | | 2019 | | [facility] | E, DO [address] | | | | | MEDICAL CLINIC [address] | [place], [place] | | | | | [address] [place], | [address] | | | | | [place] [address] | [phone] | | | | | [phone] | | | +--------+ + + + [...]
--- OUTSIDE RECORDS SUMMARY | ~2019-05-28 | XMS | Encounter Summary ---
Demographics + + + | Address | [address] | | | [place] [address] | + + + | Home Phone | | + + + | Preferred Language | Unknown | + + + | Marital Status | | + + + | Pentecostalism Affiliation | 1013 | + + + | Race | Unknown | + + + | Ethnic Group | Unknown | + + + Author + + + | Author | [facility] | | | and [place] | + + + | Organization | [facility] | | | and [place] | + + + | Address | Unknown | + + + | Phone | Unavailable | + + + Support + + + + + | Name | Relationship | Address | Phone | + + + + + | Mak Ramires | ECON | [address], | | | | | [place] [address] | | + + + + + Care Team Providers + +------+ + | Care Commissioning Specialist Name | Role | Phone | + +------+ + PCP | Unavailable | + +------+ + Encounter Details +--------+ + + + + | Date | Type | Department | Care Team | Description | +--------+ + + + + | 04/06/ | [facility] | [facility] | | | | 2002 | Encounter | MED CTR XRAY [address] | | | | | | [address] [place] | | | | | | [place] [address] | | | | | | [phone] | | | +--------+ + + + [...]
--- OUTSIDE RECORDS SUMMARY | ~2019-05-28 | XMS | Encounter Summary ---
Demographics + + + | Address | [address] | | | [place] [address] | + + + | Home Phone | | + + + | Preferred Language | Unknown | + + + | Marital Status | | + + + | Episcopal Affiliation | 1013 | + + + | Race | Unknown | + + + | Ethnic Group | Unknown | + + + Author + + + | Author | [facility] | | | and [place] | + + + | Organization | [facility] | | | and [place] | + + + | Address | Unknown | + + + | Phone | Unavailable | + + + Support + + + + + | Name | Relationship | Address | Phone | + + + + + | Mak Ramires | ECON | [address], | | | | | [place] [address] | | + + + + + Care Team Providers + +------+ + | Care Scaler Packer Name | Role | Phone | + [...] | +--------+ + + + + | 09/23/ | Telephone | [facility] | [facility] | Lab Results | | 2018 | | [facility] | PRIMARY CARE MD | | | | | MEDICAL CLINIC [address] | | | | | | [address] [facility] [place], | | | | | | [place] [address] | | | | | | [phone] | | | +--------+ + + + [...]
--- OUTSIDE RECORDS SUMMARY | ~2019-05-28 | XMS | Encounter Summary ---
Demographics + + + | Address | [address] | | | [place] [address] | + + + | Home Phone | | + + + | Preferred Language | Unknown | + + + | Marital Status | | + + + | Evangelical Affiliation | 1013 | + + + | Race | Unknown | + + + | Ethnic Group | Unknown | + + + Author + + + | Author | [facility] | | | and [place] | + + + | Organization | [facility] | | | and [place] | + + + | Address | Unknown | + + + | Phone | Unavailable | + + + Support + + + + + | Name | Relationship | Address | Phone | + + + + + | Mak Ramires | ECON | [address], | | | | | [place] [address] | | + + + + + Care Team Providers + +------+ + | Care Scrap Collector Name | Role | Phone | + +------+ + | Mehrdad Avila DO | PCP | | + +------+ + Reason for Visit +---------+ + | Reason | Comments | +---------+ + | Results | | +---------+ + Encounter Details +--------+ + + + + | Date | Type | Department | Care Team | Description | +--------+ + + + + | 12/06/ | Telephone | [facility] | Mehrdad Avila | Results | | 2019 | | [facility] | E, DO [address] | | | | | MEDICAL CLINIC [address] | [place], [place] | | | | | [address] [place], | [address] | | | | | [place] [address] | [phone] | | | | | [phone] | | | +--------+ + + + [...]
--- OUTSIDE RECORDS SUMMARY | ~2019-05-28 | XMS | Encounter Summary ---
Demographics + + + | Address | [address] | | | [place] [address] | + + + | Home Phone | | + + + | Preferred Language | Unknown | + + + | Marital Status | | + + + | Confucianism Affiliation | 1013 | + + + | Race | Unknown | + + + | Ethnic Group | Unknown | + + + Author + + + | Author | [facility] | | | and [place] | + + + | Organization | [facility] | | | and [place] | + + + | Address | Unknown | + + + | Phone | Unavailable | + + + Support + + + + + | Name | Relationship | Address | Phone | + + + + + | Mak Ramires | ECON | [address], | | | | | [place] [address] | | + + + + + Care Team Providers + +------+ + | Care Licensed Prosthetist/Orthotist Name | Role | Phone | + +------+ + | Mehrdad Avila DO | PCP | | + +------+ + Encounter Details +--------+ + + + + | Date | Type | Department | Care Team | Description | +--------+ + + + + | 09/03/ | Abstract | [facility] | Nata Weiss | | | 2019 | | [facility] | | | | | | MEDICAL CLINIC [address] | | | | | | [address] [place], | | | | | | [place] [address] | | | | | | [phone] | | | +--------+ + + + [...]
--- OUTSIDE RECORDS SUMMARY | ~2019-05-28 | XMS | Encounter Summary ---
Demographics + + + | Address | [address] | | | [place] [address] | + + + | Home Phone | | + + + | Preferred Language | Unknown | + + + | Marital Status | | + + + | Roman Catholic Affiliation | Unknown | + + + | Race | White | + + + | Ethnic Group | Not or | + + + Author + + + | Author | [facility] | + + + | Organization | [facility] | + + + | Address | Unknown | + + + | Phone | Unavailable | + + + Support + + + + + | Name | Relationship | Address | Phone | + + + + + | Mak Ramires | LILIBETH | [place] | | + + + + + Care Team Providers + +------+ + | Care Hand Paint Mixer Name | Role | Phone | + [...] as of this encounter Progress Notes Interface, It Help Desk Associate In - 05/04/2006 5:06 AM PSTCLINIC DATE: [...] weeks. Ford Casper M.D. CARMELO / GWENDOLYN [id number] / [id number] / [id number] / [id number] signed by Interface, It Help Desk Associate In at 05/04/2006 5:06 AM PSTdocume nted in this encounter Plan of Treatment Not on filedocumented as of this encounter Visit Diagnoses Not on filedocumented in this encounter"
--- OUTSIDE RECORDS SUMMARY | ~2019-05-28 | XMS | Encounter Summary ---
Demographics + + + | Address | [address] | | | [place] [address] | + + + | Home Phone | | + + + | Preferred Language | Unknown | + + + | Marital Status | | + + + | Caodaism Affiliation | 1013 | + + + | Race | Unknown | + + + | Ethnic Group | Unknown | + + + Author + + + | Author | [facility] | | | and [place] | + + + | Organization | [facility] | | | and [place] | + + + | Address | Unknown | + + + | Phone | Unavailable | + + + Support + + + + + | Name | Relationship | Address | Phone | + + + + + | Mak Ramires | ECON | [address], | | | | | [place] [address] | | + + + + + Care Team Providers + +------+ + | Care Transport Engineer Name | Role | Phone | + +------+ + PCP | Unavailable | + +------+ + Encounter Details +--------+ + + + + | Date | Type | Department | Care Team | Description | +--------+ + + + + | 05/16/ | Hospital | [facility] | Unknown, | | | 1993 | Encounter | MED CTR XRAY [address] | MD Gio | | | | | [place] | | | | | | [place] [address] | (Fax) | | | | | [phone] | | | +--------+ + + + [...]
--- OUTSIDE RECORDS SUMMARY | ~2019-05-28 | XMS | Encounter Summary ---
Demographics + + + | Address | [address] | | | [place] [address] | + + + | Home Phone | | + + + | Preferred Language | Unknown | + + + | Marital Status | | + + + | Gnosticism Affiliation | 1013 | + + + | Race | Unknown | + + + | Ethnic Group | Unknown | + + + Author + + + | Author | [facility] | | | and [place] | + + + | Organization | [facility] | | | and [place] | + + + | Address | Unknown | + + + | Phone | Unavailable | + + + Support + + + + + | Name | Relationship | Address | Phone | + + + + + | Mak Ramires | ECON | [address], | | | | | [place] [address] | | + + + + + Care Team Providers + +------+ + | Care Safety Fire Boss Name | Role | Phone | + +------+ + PCP | Unavailable | + +------+ + Encounter Details +--------+ + + + + | Date | Type | Department | Care Team | Description | +--------+ + + + + | 03/26/ | [facility] | [facility] | Mak Johnson MD | | | 2006 | Encounter | MED CTR GENERIC OP | [address] | | | | | CONV DEPT [address] | [address] | | | | | [place], | [address] | | | | | [place] [address] | | | | | | [phone] | | | +--------+ + + + [...]
--- OUTSIDE RECORDS SUMMARY | ~2019-05-28 | XMS | Clinical Summary ---
Demographics + + + | Address | [address] | | | [place] [address] | + + + | Home Phone | | + + + | Preferred Language | Unknown | + + + | Marital Status | | + + + | Anabaptist Affiliation | 1013 | + + + | Race | Unknown | + + + | Ethnic Group | Unknown | + + + Author + + + | Author | [facility] | | | and [place] | + + + | Organization | [facility] | | | and [place] | + + + | Address | Unknown | + + + | Phone | Unavailable | + + + Support + + + + + | Name | Relationship | Address | Phone | + + + + + | Mak Ramires | ECON | [address], | | | | | [place] [address] | | + + + + + Care Team Providers + +------+ + | Care Geography Professor Name | Role | Phone | + [...] | | | | e | | ([facility] | | | | | | [...] | | + + + +---------+------+------+-------+ | [place]-3 Fatty | Take by mouth. | | [...] + | Stroke | Father | | MD | + + +------+ + | Diabetes [...] +--------+ +---------+--------+ | MEDICARE | MEDICA | [id number] | 01/21/20 | [phone] | | Medica | | | RE | | 11-Pre | 5 | | re | | | PART A | | sent | | | | | | AND B | | | | | | + +--------+ +--------+ +---------+--------+ | [employer] | [employer]A | [id number] | | | | Medica | | [...] | | al/Fam | | 1945 | [phone] | [place] [address] | | | darell | | | 0 (Home) | | + +--------+ +--------+ + + Advance Directives + + + + + | Type | Date Recorded | Patient | Explanation | | | | Shellfish Sorter | | + + + + + | Power of | | | | | Mechanical Facilities Technician | | | | + + + + + | Advance | 09/07/2018 10:02 | | | | Directive | AM | | | + + + + +
--- OUTSIDE RECORDS SUMMARY | ~2019-05-28 | XMS | Encounter Summary ---
Demographics + + + | Address | [address] | | | [place] [address] | + + + | Home Phone | | + + + | Preferred Language | Unknown | + + + | Marital Status | | + + + | Congregational Affiliation | 1013 | + + + | Race | Unknown | + + + | Ethnic Group | Unknown | + + + Author + + + | Author | [facility] | | | and [place] | + + + | Organization | [facility] | | | and [place] | + + + | Address | Unknown | + + + | Phone | Unavailable | + + + Support + + + + + | Name | Relationship | Address | Phone | + + + + + | Mak Ramires | ECON | [address], | | | | | [place] [address] | | + + + + + Care Team Providers + +------+ + | Care Hse Specialist Name | Role | Phone | + +------+ + | Mehrdad Avila DO | PCP | | + +------+ + Reason for Visit + + + | Reason | Comments | + + + | Depression | | + + + | Establish Care | | + + + Encounter Details +--------+---------+ + + + | Date | Type | Department | Care Team | Description | +--------+---------+ + + + | 09/07/ | Office | [facility] | Mehrdad Avila | Seasonal affective | | 2019 | Visit | [facility] | E, DO [address] | disorder (HCC) | | | | [facility] [address] | [place] [facility], [place] | (Primary Dx); | | | | [address] [place], | [address] | Hypothyroidism, | | | | [place] [address] | [phone] | unspecified type; | | | | [phone] | | Anemia, chronic | | | | | | disease; Need for | | | | | | hepatitis C | | | | | | screening test | +--------+---------+ + + + Social History + +-------+ [...] + + documented as of this encounter Last Filed Vital Signs + + + + + | Vital Sign | Reading | Time Taken | Comments | + + + + + | Blood Pressure | 124/70 | 09/07/2018 10:18 AM | Med cuff, right arm | | | | PDT | | + + + + + | Pulse | 53 | 09/07/2018 10:18 AM | R | | | | PDT | | + + + + + | Temperature | - | - | | + + + + + | Respiratory Rate | 14 | 09/07/2018 10:18 AM | | | | | PDT | | + + + + + | Oxygen Saturation | 99% | 09/07/2018 10:18 AM | RA | | | | PDT | | + + + + + | Inhaled Oxygen | - | - | | | Concentration | | | | + + + + + | Weight | 69.9 kg (154 lb 3.2 | 09/07/2018 10:18 AM | | | | oz) | PDT | | + + + + + | Height | 166 cm (5' 5.35") | 09/07/2018 10:18 AM | | | | | PDT | | + + + + + | Body Mass Index | 25.38 | 09/07/2018 10:18 AM | | | | | PDT | | + + + + + documented in this encounter Patient Instructions Patient Instructions Nata Weiss - 09/07/2018 10:00 AM PDT-Use full spectrum light, plac e next to bed and set timer to turn on 1 hour before you wake up. -Continue taking 2000 mg of Vitamin D -Start increased dose to Levothyroxine 100 mcg daily before breakfast -Go to [facility] in [place] to repeat TSH -Take Occult Cards to [facility] in [place] when completed. documented in this encounter Progress Notes Mehrdad Avila DO - 09/07/2018 10:00 AM PDT Patient ID: Antonia Ramires is a 73 y.o. year old female Chief Complaint Patient presents with Depression Establish Care Assessment Seasonal affective disorder (HCC) (Primary) Hypothyroidism, unspecified type - TSH; Future; Expected date: 11/02/2018 - Levothyroxine Sodium; Take 1 tablet by mouth every morning (before breakfast). Dispe nse: 30 tablet; Refill: 2 Anemia, chronic disease - Occ Bld Stl For Colorectal Neoplasm Scr Plan -Use full spectrum light, place next to bed and set timer to turn on 1 hour before you wake up. -Continue taking 2000 mg of Vitamin D -Start increased dose to Levothyroxine 100 mcg daily before breakfast -Go to [facility] in [place] to repeat TSH -Take Occult Cards to [facility] in [place] when completed. 60 minute visit with > 50% time spent in counseling. Subjective: SRINIVASAN Knight presents to the clinic today to re-establish care with me from [facility], and discuss depression. She just came out a long period of depression. In March 2018 her son took a nose dive in drug and alcohol addiction and hit rock bottom. Then his cut communication off. Her son is now in [place] and got treatment and is now sober, he recently was able to move back i n with his family. Every winter since the s is very hard for her. Now the mccarty are get ting longer and longer and harder and harder. She made a list of all the wrong things that a re wrong in her life, the things she can change, and eat right. She has started working on a ccomplishing her list one thing at a time. She diagnosed herself with sad. She is schedule w fazal Mujica PhD. Discussion looking forward use a full spectrum light, taking Vitam in D, and possibly starting a medication next fall. The medications that we would use will t rajwinder at least month to get started. She knows by mid March is when everything turns bad for her. She tried a full spectrum light and it gave her migraines. The light was on her table next to her chair and shined directly on her. When she went through this winter she slept mo re 8 pm to 6 am and ate more. She had been on Elival in the past, she slept for 3 days. Toda y she is feeling good, the good whether has helped her. [place] and she enjoyed it. Reviewed recent blood work with her. Her TSH was a little elevated at 4.22, she is currentl y taking Levothyroxine 88 mcg daily. Her hemoglobin was 10.8 and Hct was 33.1. She will comp lete occult cards. Her last Colonoscopy was 4-5 years ago, and Dr. Mcneill advised her she did n't need to repeat. She had her last mammogram 03/2018, she is being followed by [facility] in [place]. Current Outpatient Prescriptions Medication Sig Dispense Refill alendronate (FOSAMAX) 70 mg tablet Take 70 mg by mouth every 7 days. amitriptyline (ELAVIL) 10 mg tablet Take 2.5 mg by mouth nightly. xkfyoxd-jlrbztjatbxva-waxtcxez (EXCEDRIN MIGRAINE) 250-250-65 MG per tablet Take 1 tabl et by mouth every 6 hours as needed for Pain. Calcium Carbonate (CALCIUM 600 PO) Take by mouth. cholecalciferol (CHOLECALCIFEROL) 1000 units TABS Take 1,000 Units by mouth Daily. ciclopirox (PENLAC) 8 % solution Apply topically nightly. fluticasone (FLONASE) 50 mcg/nasal spray 1 spray by Nasal route Daily. levothyroxine (SYNTHROID) 88 mcg tablet Take 88 mcg by mouth every morning (before david kfast). Multiple Vitamins-Minerals (CENTRUM SILVER 50+WOMEN PO) Take by mouth. Multiple Vitamins-Minerals (MACULAR HEALTH FORMULA PO) Take by mouth. [place]-3 Fatty Acids (PRO NUTRIENTS OMEGA 3) 332.5 MG CPDR Take by mouth. polyethylene glycol (MIRALAX) powder Take 17 g by mouth Daily as needed for Constipatio n. propranolol (INDERAL) 40 mg tablet take 120 mg by mouth daily terbinafine (LAMISIL) 250 MG tablet Take 250 mg by mouth Daily. Take for seven days tiny ry three months. topiramate (TROKENDI XR) 25 mg ER capsule Take 50 mg by mouth Daily. No current facility-administered medications for this visit. Patient Active Problem List Diagnosis Migraine headache Osteoporosis, post-menopausal Familial tremor Allergic rhinitis Seasonal affective disorder Hypothyroidism Anemia Family History Problem Relation Age of Onset Alzheimer's disease Mother Stroke Father NE Heart disease Father Other (see comment) Sister spinal stenosis Diabetes Maternal Grandmother Past Surgical History: Procedure Laterality Date COLECTOMY 2010 Partial colectomy with ostomy placement (taken down 08/2011) COLONOSCOPY 06/26/2014 HERNIA REPAIR Incisional TOTAL HIP ARTHROPLASTY Left 07/2016 Social History Social History Marital status: Spouse name: Cristian Number of children: N/A Years of education: N/A Occupational History Not on file. Social History Main Topics Smoking status: Never Smoker Smokeless tobacco: Never Used Alcohol use No Drug use: No Sexual activity: Yes Partners: Male control/ protection: Post-menopausal Other Topics Concern Not on file Social History Narrative No narrative on file Allergies Allergen Reactions Food Shortness Of Breath and Swelling PEPPERS Neomycin Dermatitis Inflammation Scopolamine Other (See Comments) Mental changes Sulfa Antibiotics Anaphylaxis Oxycodone Nausea And Vomiting Review of Systems Constitutional: Positive for appetite change. Negative for fatigue and fever. Respiratory: Negative for cough, chest tightness, shortness of breath and wheezing. Cardiovascular: Negative for chest pain and palpitations. Gastrointestinal: Negative for abdominal pain, nausea and vomiting. Musculoskeletal: Negative for gait problem and myalgias. Neurological: Negative for dizziness, syncope and headaches. Psychiatric/Behavioral: Negative for self-injury and suicidal ideas. The patient is not ner vous/anxious. Very sad with family stress, improving slowly Objective: Vitals: BP 124/70 Comment: Med cuff, right arm | Pulse 53 Comment: R | Resp 14 | Ht 1.66 m (5' 5.3 5") | Wt 69.9 kg (154 lb 3.2 oz) | LMP (LMP Unknown) | SpO2 99% Comment: RA | Breastfeed ing? No | BMI 25.38 kg/m Physical Exam Constitutional: She is oriented to person, place, and time. She appears well-developed and well-nourished. No distress. Eyes: EOM are normal. Cardiovascular: Normal rate, regular rhythm and normal heart sounds. Pulmonary/Chest: Effort normal and breath sounds normal. Abdominal: Soft. Bowel sounds are normal. Lymphadenopathy: She has no cervical adenopathy. Neurological: She is alert and oriented to person, place, and time. Psychiatric: She has a normal mood and affect. Entered by Nata Weiss, acting as scribe for Jamaal Avila D.O. The documentation recorded by the scribe accurately reflects the service I personally perfo [facility] and the decisions made by me. documented in this encounter Plan of Treatment + + +--------+ + + | Name | Type | Priori | Associated Diagnoses | Order Schedule | | | | ty | | | + + +--------+ + + | TSH | Lab | Routin | Hypothyroidism, | Expected: | | | | e | unspecified type | 11/02/2018, Expires: | | | | | | 09/08/2019 | + + +--------+ + + | Occ Bld Stl For | Microbiolog | Routin | Anemia, chronic | Ordered: 09/07/2018 | | Colorectal Neoplasm | y | e | disease | | | Scr | | | | | + + +--------+ + + | Hepatitis C, NAAT, | Lab | Routin | Need for hepatitis | 1 Occurrences | | Quant, Reflex | | e | C screening test | starting 09/07/2018 | | | | | | until 09/08/2019 | + + +--------+ + + | Occult Blood, Stool, | Lab | Routin | Anemia, chronic | Ordered: 09/07/2018 | | Specimen 1 | | e | disease | | + + +--------+ + + documented as of this encounter Procedures + +--------+ + + + | Procedure Name | Priori | Date/Time | Associated Diagnosis | Comments | | | ty | | | | + +--------+ + + + | LABS - EXTERNAL SCAN | | 10/13/2018 | | Results for this | | | | 12:00 AM | | procedure are in the | | | | PDT | | results section. | + +--------+ + + + documented in this encounter Results LABS - EXTERNAL SCAN (10/13/2018 12:00 AM PDT) + + + | Narrative | Performed At | + + + | Ordered by an | | | unspecified provider. | | + + + documented in this encounter Visit Diagnoses + + | Diagnosis | + + | Seasonal affective disorder (HCC) - Primary Other specified episodic mood disorder | + + | Hypothyroidism, unspecified type | + + | Anemia, chronic disease Anemia of other chronic disease | + + | Need for hepatitis C screening test Special screening examination for other specified | | viral diseases | + + documented in this encounter
--- OUTSIDE RECORDS SUMMARY | ~2019-05-28 | XMS | Encounter Summary ---
Demographics + + + | Address | [address] | | | [place] [address] | + + + | Home Phone | | + + + | Preferred Language | Unknown | + + + | Marital Status | | + + + | Uatsdin Affiliation | 1013 | + + + | Race | Unknown | + + + | Ethnic Group | Unknown | + + + Author + + + | Author | [facility] | | | and [place] | + + + | Organization | [facility] | | | and [place] | + + + | Address | Unknown | + + + | Phone | Unavailable | + + + Support + + + + + | Name | Relationship | Address | Phone | + + + + + | Mak Ramires | ECON | [address], | | | | | [place] [address] | | + + + + + Care Team Providers + +------+ + | Care Mosaic Tiler Name | Role | Phone | + +------+ + | Mehrdad Avila DO | PCP | | + +------+ + Reason for Visit + + + | Reason | Comments | + + + | Medication Refill | | + + + Encounter Details +--------+--------+ + + + | Date | Type | Department | Care Team | Description | +--------+--------+ + + + | 11/04/ | Refill | [facility] | Wendy Esquivel, CC | Medication Refill | | 2018 | | [facility] | CONCRET[facility] WALL GRIND[facility] OPERATOR | | | | | MEDICAL CLIN[facility] [address] | | | | | | [address] [facility] [place], | | | | | | [place] [address] | | | | | | [phone] | | | +--------+--------+ + + + Social History + +-------+ [...]
--- OUTSIDE RECORDS SUMMARY | ~2019-05-28 | XMS | Encounter Summary ---
Demographics + + + | Address | [address] | | | [place] [address] | + + + | Home Phone | | + + + | Preferred Language | Unknown | + + + | Marital Status | | + + + | Jainism Affiliation | 1013 | + + + | Race | Unknown | + + + | Ethnic Group | Unknown | + + + Author + + + | Author | [facility] | | | and [place] | + + + | Organization | [facility] | | | and [place] | + + + | Address | Unknown | + + + | Phone | Unavailable | + + + Support + + + + + | Name | Relationship | Address | Phone | + + + + + | Mak Ramires | ECON | [address], | | | | | [place] [address] | | + + + + + Care Team Providers + +------+ + | Care Target Protection Specialist Name | Role | Phone | + +------+ + | Mehrdad Avila DO | PCP | | + +------+ + Reason for Visit +--------+ + | Reason | Comments | +--------+ + | Other | lab orders | +--------+ + Encounter Details +--------+ + + + + | Date | Type | Department | Care Team | Description | +--------+ + + + + | 09/17/ | Telephone | [facility] | Mehrdad Avila | Other (lab orders) | | 2019 | | [facility] | E, DO [address] | | | | | MEDICAL CLINIC [address] | [place], [place] | | | | | [address] [place], | [address] | | | | | [place] [address] | [phone] | | | | | [phone] | | | +--------+ + + + [...]
--- OUTSIDE RECORDS SUMMARY | ~2019-05-28 | XMS | Encounter Summary ---
Demographics + + + | Address | [address] | | | [place] [address] | + + + | Home Phone | | + + + | Preferred Language | Unknown | + + + | Marital Status | | + + + | Yazidi Affiliation | 1013 | + + + | Race | Unknown | + + + | Ethnic Group | Unknown | + + + Author + + + | Author | [facility] | | | and [place] | + + + | Organization | [facility] | | | and [place] | + + + | Address | Unknown | + + + | Phone | Unavailable | + + + Support + + + + + | Name | Relationship | Address | Phone | + + + + + | Mak Ramires | ECON | [address], | | | | | [place] [address] | | + + + + + Care Team Providers + +------+ + | Care Show Design Supervisor Name | Role | Phone | + +------+ + PCP | Unavailable | + +------+ + Encounter Details +--------+ + + + + | Date | Type | Department | Care Team | Description | +--------+ + + + + | 03/15/ | Hospital | [facility] | | | | 1997 | Encounter | MED CTR GENERIC OP | | | | | | CONV DEPT [address] | | | | | | [place], | | | | | | [place] [address] | | | | | | [phone] | | | +--------+ + + + [...]
--- OUTSIDE RECORDS SUMMARY | ~2019-05-28 | XMS | Encounter Summary ---
Demographics + + + | Address | [address] | | | [place] [address] | + + + | Home Phone | | + + + | Preferred Language | Unknown | + + + | Marital Status | | + + + | Yazidi Affiliation | 1013 | + + + | Race | Unknown | + + + | Ethnic Group | Unknown | + + + Author + + + | Author | [facility] | | | and [place] | + + + | Organization | [facility] | | | and [place] | + + + | Address | Unknown | + + + | Phone | Unavailable | + + + Support + + + + + | Name | Relationship | Address | Phone | + + + + + | Mak Ramires | ECON | [address], | | | | | [place] [address] | | + + + + + Care Team Providers + +------+ + | Care Sewing Machine Repairer Name | Role | Phone | + [...] | | [address] [place], | [address] | | | | | [place] [address] | [phone] | | | | | [phone] | | | +--------+ + + + [...]
--- OUTSIDE RECORDS SUMMARY | ~2019-05-28 | XMS | Encounter Summary ---
Demographics + + + | Address | [address] | | | [place] [address] | + + + | Home Phone | | + + + | Preferred Language | Unknown | + + + | Marital Status | | + + + | Sabianist Affiliation | 1013 | + + + | Race | Unknown | + + + | Ethnic Group | Unknown | + + + Author + + + | Author | [facility] | | | and [place] | + + + | Organization | [facility] | | | and [place] | + + + | Address | Unknown | + + + | Phone | Unavailable | + + + Support + + + + + | Name | Relationship | Address | Phone | + + + + + | Mak Ramires | ECON | [address], | | | | | [place] [address] | | + + + + + Care Team Providers + +------+ + | Care Analysis Reporting Developer Name | Role | Phone | + +------+ + | Mehrdad Avila DO | PCP | | + +------+ + Reason for Visit + + + | Reason | Comments | + + + | Lab Results | [facility] | + + + Encounter Details +--------+ + + + + | Date | Type | Department | Care Team | Description | +--------+ + + + + | 08/31/ | Telephone | [facility] | Mehrdad Avila | Lab Results | | 2019 | | [facility] | E, DO [address] | ([facility]) | | | | MEDICAL CLIN[facility] [address] | [place], [place] | | | | | [address] [place], | [address] | | | | | [place] [address] | [phone] | | | | | [phone] | | | +--------+ + + + [...]
--- OUTSIDE RECORDS SUMMARY | ~2019-05-28 | XMS | Encounter Summary ---
Demographics + + + | Address | [address] | | | [place] [address] | + + + | Home Phone | | + + + | Preferred Language | Unknown | + + + | Marital Status | | + + + | Protestant Affiliation | 1013 | + + + | Race | Unknown | + + + | Ethnic Group | Unknown | + + + Author + + + | Author | [facility] | | | and [place] | + + + | Organization | [facility] | | | and [place] | + + + | Address | Unknown | + + + | Phone | Unavailable | + + + Support + + + + + | Name | Relationship | Address | Phone | + + + + + | Mak Ramires | ECON | [address], | | | | | [place] [address] | | + + + + + Care Team Providers + +------+ + | Care Test Technician Name | Role | Phone | + +------+ + | Mehrdad Avila DO | PCP | | + +------+ + Encounter Details +--------+ + + + + | Date | Type | Department | Care Team | Description | +--------+ + + + + | 08/31/ | Abstract | [facility] | Mehrdad Avila | | | 2019 | | [facility] | E, DO [address] | | | | | MEDICAL CLINIC [address] | [place] | | | | | [address] [place], | [address] | | | | | [place] [address] | [phone] | | | | | [phone] | | | +--------+ + + + [...] Not on filedocumented as of this encounter Procedures + +--------+ + + + | Procedure Name | Priori | Date/Time | Associated Diagnosis | Comments | | | ty | | | | + +--------+ + + + | EXTERNAL: | Routin | 06/26/2014 | | Results for this | | COLONOSCOPY | e | | | procedure are in the | | | | | | results section. | + +--------+ + + + documented in this encounter Results EXTERNAL: COLONOSCOPY (06/26/2014) + + + + + + | Component | Value | Ref Range | Performed | Pathologist | | | | | At | Signature | + + + + + + | Colonoscopy | Findings: Mild chronic | | | | | | inflammation | | | | | Impression, | (proctitis); Plan: | | | | | External | Repeat 7-10 years, 2024. | | | | | | Comment: [facility] | | | | | | [facility] | | | | | | Record | | | | + + + + + + documented in this encounter Visit Diagnoses Not on filedocumented in this encounter"
--- OUTSIDE RECORDS SUMMARY | ~2019-05-28 | XMS | Encounter Summary ---
Demographics + + + | Address | [address] | | | [place] [address] | + + + | Home Phone | | + + + | Preferred Language | Unknown | + + + | Marital Status | | + + + | Pentecostalism Affiliation | 1013 | + + + | Race | Unknown | + + + | Ethnic Group | Unknown | + + + Author + + + | Author | [facility] | | | and [place] | + + + | Organization | [facility] | | | and [place] | + + + | Address | Unknown | + + + | Phone | Unavailable | + + + Support + + + + + | Name | Relationship | Address | Phone | + + + + + | Mak Ramires | ECON | [address], | | | | | [place] [address] | | + + + + + Care Team Providers + +------+ + | Care Group Insurance Special Agent Name | Role | Phone | + +------+ + | Mehrdad Avila DO | PCP | | + +------+ + Reason for Referral Self-referral (Routine) +--------+ + + + + + | Status | Reason | Specialty | Diagnoses / | Referred By | Referred To | | | | | Procedures | Contact | Contact | +--------+ + + + + + | Closed | Specialty | Physical | Diagnoses | Denilson Avila | | | Services | Therapy | Left hip | Mehrdad E, [facility] | | | Required | | pain | DO [address] | PHYSICAL | | | | | | [address] | [address] | | | | | | [place], [place] | [place] | | | | | | [address] | [place], [place] | | | | | | Phone: | [address] | | | | | | [phone] | Phone: | | | | | | Fax: | [phone] | | | | | | [phone] | Fax: | | | | | | | [phone] | +--------+ + + + + + Reason for Visit + + + | Reason | Comments | + + + | Referral | Requesting a referral to [facility] for physical therapy on | | | left hip | + + + Encounter Details +--------+ + + + + | Date | Type | Department | Care Team | Description | +--------+ + + + + | 10/13/ | Telephone | [facility] | Mehrdad Avila | Referral (Requesting | | 2019 | | [facility] | E, [address] | a referral to | | | | [facility] | [place], [place] | [facility] | | | | [address] [place], | [address] | physical therapy on | | | | [place] [address] | [phone] | left hip) | | | | [phone] | | | +--------+ + + + [...] as of this encounter Plan of Treatment + + +--------+ + + | Name | Type | Priori | Associated Diagnoses | Order Schedule | | | | ty | | | + + +--------+ + + | Physical Therapy - | Outpatient | Routin | Left hip pain | Ordered: 10/14/2018 | | Ambulatory Referral | Referral | e | | | + + +--------+ + + documented as of this encounter Procedures + +--------+ + + + | Procedure Name | Priori | Date/Time | Associated Diagnosis | Comments | | | ty | | | | + +--------+ + + + | THYROID STIMULATING | Routin | 12/06/2018 | | Results for this | | HORMONE 3RD GEN | e | 1:54 PM | | procedure are in the | | | | PDT | | results section. | + +--------+ + + + | URINALYSIS WITH | Routin | 12/06/2018 | | Results for this | | MICROSCOPIC WITH | e | 1:54 PM | | procedure are in the | | CULTURE IF INDICATED | | PDT | | results section. | + +--------+ + + + | LIPID PANEL | Routin | 12/06/2018 | | Results for this | | | e | 1:54 PM | | procedure are in the | | | | PDT | | results section. | + +--------+ + + + | CBC WITH | Routin | 12/06/2018 | | Results for this | | DIFFERENTIAL | e | 1:54 PM | | procedure are in the | | | | PDT | | results section. | + +--------+ + + + | CULTURE, URINE | Routin | 12/06/2018 | | Results for this | | | e | 1:54 PM | | procedure are in the | | | | PDT | | results section. | + +--------+ + + + | COMPREHENSIVE | Routin | 12/06/2018 | | Results for this | | METABOLIC PANEL | e | 1:54 PM | | procedure are in the | | | | PDT | | results section. | + +--------+ + + + documented in this encounter Results Culture, Urine (12/06/2018 1:54 PM PDT) + + + + + + | Component | Value | Ref Range | Performed | Pathologist | | | | | At | Signature | + + + + + + | CULTURE | SEE NOTEComment: URINE | | REFERENCE | | | BACTERIA | CULTURE 12/07/2018 | | LAB | | | URINE | 12:37 PM No growth | | [facility] | | | | after overnight | | | | | | incubation. 12/08/2018 | | | | | | 07:19 AM 100,000 | | | | | | CFU/mL mixed growth. | | | | | | Bacteria isolated | | | | | | probably represent | | | | | | contaminating viridiana. | | | | | | Testing Performed at: | | | | | | [facility] [place] [address]; | | | | | | [place] | | | | | | [id number] Phone: | | | | | | | | | | + + + + + + + + | Specimen | + + | | + + + + + + + | Performing | Address | City/State/Zipcode | Phone Number | | Organization | | | | + + + + + | REFERENCE LAB | [address] | [place] [address] | [phone] | | [facility] | | | | + + + + + | REFERENCE LAB | [address] [facility] | [place] [address] | [phone] | | [facility] | | | | + + + + + Thyroid Stimulating Hormone 3rd Gen (12/06/2018 1:54 PM PDT) + + + + + + | Component | Value | Ref Range | Performed | Pathologist | | | | | At | Signature | + + + + + + | TSH | 0.351Comment: Biotin | 0.270 - 4.20 | REFERENCE | | | | in specimens taken from | | LAB | | | | patients on high-dose | | [facility] | | | | biotin therapy or | | | | | | supplements may intefere | | | | | | with this test and | | | | | | cause inaccurate test | | | | | | results. It is | | | | | | recommended that for | | | | | | patients receiving | | | | | | therapy with high biotin | | | | | | doses (> 5 mg/day), no | | | | | | laboratory test specimen | | | | | | should be collected | | | | | | until at least 8 hours | | | | | | after the last biotin | | | | | | administration.This | | | | | | patient has refused | | | | | | test(s) ordered because | | | | | | it was not covered by | | | | | | Medicare or other | | | | | | insurance carrier based | | | | | | on the diagnosis given, | | | | | | or due to the stephenson of | | | | | | the testing. If you have | | | | | | any questions please | | | | | | call Client Services at | | | | | | [phone]. | | | | + + + + + + + + | Specimen | + + | | + + + + + | Narrative | Performed At | + + + | Testing Performed at: [facility] [place] [facility] CLIA: [id number] - [address] | REFERENCE LAB | | [place] [address] | [facility] | + + + + + + + + | Performing | Address | City/State/Zipcode | Phone Number | | Organization | | | | + + + + + | REFERENCE LAB | [address] | [place] [address] | [phone] | | [facility] | | | | + + + + + | REFERENCE LAB | [address] | [place] [address] | [phone] | | [facility] | | | | + + + + + Comprehensive Metabolic Panel (12/06/2018 1:54 PM PDT) + + + + + + | Component | Value | Ref Range | Performed | Pathologist | | | | | At | Signature | + + + + + + | Sodium | 141 | 132 - 143 | REFERENCE | | | | | | LAB | | | | | | [facility] | | + + + + + + | Potassium | 4.0 | 3.6 - 5.1 | REFERENCE | | | | | | LAB | | | | | | [facility] | | + + + + + + | Chloride | 108 | 95 - 112 | REFERENCE | | | | | | LAB | | | | | | [facility] | | + + + + + + | Carbon | 25 | 19 - 31 | REFERENCE | | | dioxide | | | LAB | | | | | | [facility] | | + + + + + + | Anion Gap | 12.0 | 7 - 21 | REFERENCE | | | | | | LAB | | | | | | [facility] | | + + + + + + | Glucose | 102 (H) | 70 - 100 | REFERENCE | | | | | | LAB | | | | | | [facility] | | + + + + + + | BUN | 24 (H) | 6 - 23 | REFERENCE | | | | | | LAB | | | | | | [facility] | | + + + + + + | Creatinine | 0.97 | 0.70 - 1.18 | REFERENCE | | | | | | LAB | | | | | | [facility] | | + + + + + + | GFR | 56 (L) | | REFERENCE | | | ESTIMATE | | | LAB | | | | | | [facility] | | + + + + + + | BUN/Creatin | 24.7 | 6.0 - 28.6 | REFERENCE | | | ine Ratio | | | LAB | | | | | | [facility] | | + + + + + + | Calcium | 9.2 | 8.5 - 10.3 | REFERENCE | | | | | | LAB | | | | | | [facility] | | + + + + + + | AST (SGOT) | 19 | 13 - 39 | REFERENCE | | | (REF) | | | LAB | | | | | | [facility] | | + + + + + + | ALT (SGPT) | 11 | 7 - 52 | REFERENCE | | | (REF) | | | LAB | | | | | | [facility] | | + + + + + + | ALK PHOS | 54 | 31 - 130 | REFERENCE | | | | | | LAB | | | | | | [facility] | | + + + + + + | BILIRUBIN, | 0.3 | 0.0 - 1.2 | REFERENCE | | | TOTAL | | | LAB | | | | | | [facility] | | + + + + + + | Protein, | 6.1 | 6.0 - 8.3 | REFERENCE | | | Total | | | LAB | | | | | | [facility] | | + + + + + + | Albumin | 3.9 | 3.5 - 5.0 | REFERENCE | | | | | | LAB | | | | | | [facility] | | + + + + + + | Globulin | 2.2 | 1.8 - 3.5 | REFERENCE | | | | | | LAB | | | | | | [facility] | | + + + + + + | A/G Ratio | 1.8Comment: | 1.1 - 2.4 | REFERENCE | | | | ESTIMATED GFR Reference | | LAB | | | | Range:GFR = Less than | | [facility] | | | | 60: Chronic Kidney | | | | | | Disease, if found over a | | | | | | 3 month period.GFR = | | | | | | Less than 15: Kidney | | | | | | Failure.For | | | | | | Americans, multiply the | | | | | | calculated GFR by | | | | | | 1.21.GFR calculation is | | | | | | not valid for patients | | | | | | under age 18 years.For | | | | | | patients over age 70 | | | | | | please interpret results | | | | | | with caution as results | | | | | | have not been validated | | | | | | for this calculation | | | | | | method Please Note:Total | | | | | | Protein Reference range | | | | | | change as of | | | | | | 11/09/2017.Please Note: | | | | | | Calcium reference range | | | | | | change as of | | | | | | 01/07/2018.This patient | | | | | | has refused test(s) | | | | | | ordered because it was | | | | | | not covered by Medicare | | | | | | or other insurance | | | | | | carrier based on the | | | | | | diagnosis given, or due | | | | | | to the stephenson of the | | | | | | testing. If you have any | | | | | | questions please call | | | | | | Client Services at | | | | | | [phone]. | | | | + + + + + + + + | Specimen | + + | | + + + + + | Narrative | Performed At | + + + | Testing Performed at: [facility] CLIA: [id number] - [address] | REFERENCE LAB | | [place] [address] | [facility] | + + + + + + + + | Performing | Address | City/State/Zipcode | Phone Number | | Organization | | | | + + + + + | REFERENCE LAB | [address] | [place] [address] | [phone] | | [facility] | | | | + + + + + | REFERENCE LAB | [address] [facility] | [place] [address] | [phone] | | [facility] | | | | + + + + + Lipid Panel (12/06/2018 1:54 PM PDT) + + + + + + | Component | Value | Ref Range | Performed | Pathologist | | | | | At | Signature | + + + + + + | Cholesterol | 221 (H) | OPT: <200 | REFERENCE | | | | | | LAB | | | | | | [facility] | | + + + + + + | Triglycerid | 151 (H) | 30 - 150 | REFERENCE | | | es | | | LAB | | | | | | [facility] | | + + + + + + | HDL | 63.0 | OPT: >40 | REFERENCE | | | Cholesterol | | | LAB | | | | | | [facility] | | + + + + + + | LDL | 128 (H) | OPT: <100 | REFERENCE | | | Cholesterol | | | LAB | | | | | | [facility] | | + + + + + + | Cholesterol | 30 | 4 - 40 | REFERENCE | | | in VLDL | | | LAB | | | | | | [facility] | | + + + + + + | Chol/HDL | 3.5 | OPT: <4.44 | REFERENCE | | | Ratio | | | LAB | | | | | | [facility] | | + + + + + + | Non-HDL | 158 (H)Comment: This | OPT: <130 | REFERENCE | | | Cholesterol | patient has refused | | LAB | | | | test(s) ordered because | | [facility] | | | | it was not covered by | | | | | | Medicare or other | | | | | | insurance carrier based | | | | | | on the diagnosis given, | | | | | | or due to the stephenson of | | | | | | the testing. If you have | | | | | | any questions please | | | | | | call Client Services at | | | | | | [phone]. | | | | + + + + + + + + | Specimen | + + | | + + + + + | Narrative | Performed At | + + + | Testing Performed at: [facility] [place] [facility] CLIA: [id number] - [address] | REFERENCE LAB | | [place] [address] | [facility] | + + + + + + + + | Performing | Address | City/State/Zipcode | Phone Number | | Organization | | | | + + + + + | REFERENCE LAB | [address] | [place] [address] | [phone] | | [facility] | | | | + + + + + | REFERENCE LAB | [address] | [place] [address] | [phone] | | [facility] | | | | + + + + + Urinalysis with Microscopic with Culture if Indicated (12/06/2018 1:54 PM PDT) + + + + + + | Component | Value | Ref Range | Performed | Pathologist | | | | | At | Signature | + + + + + + | Collection | CLEAN CATCH | | REFERENCE | | | | | | LAB | | | | | | [facility] | | + + + + + + | Color, UA | YELLOW | | REFERENCE | | | | | | LAB | | | | | | [facility] | | + + + + + + | Clarity, UA | SLIGHTLYCLOUDY | | REFERENCE | | | | | | LAB | | | | | | [facility] | | + + + + + + | Specific | 1.019 | 1.005 - 1.030 | REFERENCE | | | [place] | | | LAB | | | | | | [facility] | | + + + + + + | pH, | 6 | 5 - 9 | REFERENCE | | | Scalp | | | LAB | | | | | | [facility] | | + + + + + + | Protein, UA | NEGATIVE | negative | REFERENCE | | | | | | LAB | | | | | | [facility] | | + + + + + + | Glucose, UA | NORMAL | normal | REFERENCE | | | | | | LAB | | | | | | [facility] | | + + + + + + | Ketones, UA | NEGATIVE | negative | REFERENCE | | | | | | LAB | | | | | | [facility] | | + + + + + + | Bilirubin, | NEGATIVE | negative | REFERENCE | | | UA | | | LAB | | | | | | [facility] | | + + + + + + | Blood, UA | NEGATIVE | negative | REFERENCE | | | | | | LAB | | | | | | [facility] | | + + + + + + | Nitrite, UA | NEGATIVE | negative | REFERENCE | | | | | | LAB | | | | | | [facility] | | + + + + + + | Urobilinoge | 2.0 (H) | normal | REFERENCE | | | n, Ur | | | LAB | | | | | | [facility] | | + + + + + + | Leukocyte | SMALL | negative | REFERENCE | | | esterase, | | | LAB | | | UA | | | [facility] | | + + + + + + | Cast Type | NEGATIVE | 0-1+ Hyaline | REFERENCE | | | | | | LAB | | | | | | [facility] | | + + + + + + | WBC, UA | 30 (H) | 0 - 4 | REFERENCE | | | | | | LAB | | | | | | [facility] | | + + + + + + | RBC, UA | 10 (H) | 0 - 4 | REFERENCE | | | | | | LAB | | | | | | [facility] | | + + + + + + | Squamous | SQUAMOUS 1+ | 0-1+ Squamous | REFERENCE | | | epithelial, | | | LAB | | | UA | | | [facility] | | + + + + + + | CRYSTAL UA | CA OXALATE 2+ | 0-1+ | REFERENCE | | | | | | LAB | | | | | | [facility] | | + + + + + + | Bacteria, | NEGATIVEComment: This | negative | REFERENCE | | | UA | patient has refused | | LAB | | | | test(s) ordered because | | [facility] | | | | it was not covered by | | | | | | Medicare or other | | | | | | insurance carrier based | | | | | | on the diagnosis given, | | | | | | or due to the stephenson of | | | | | | the testing. If you have | | | | | | any questions please | | | | | | call Client Services at | | | | | | [phone]. | | | | + + + + + + + + | Specimen | + + | | + + + + + | Narrative | Performed At | + + + | Testing Performed at: [facility] CLIA: [id number] - [address] | REFERENCE LAB | | [place] [address] | [facility] | + + + + + + + + | Performing | Address | City/State/Zipcode | Phone Number | | Organization | | | | + + + + + | REFERENCE LAB | [address] | [place] [address] | [phone] | | [facility] | | | | + + + + + | REFERENCE LAB | [address] | [place] [address] | [phone] | | [facility] | | | | + + + + + CBC with Differential (12/06/2018 1:54 PM PDT) + + + + + + | Component | Value | Ref Range | Performed | Pathologist | | | | | At | Signature | + + + + + + | WBC | 5.0 | 4.5 - 11.0 | REFERENCE | | | | | | LAB | | | | | | [facility] | | + + + + + + | RBC Count | 4.08 | 3.8 - 5.1 | REFERENCE | | | | | | LAB | | | | | | [facility] | | + + + + + + | Hemoglobin | 11.4 (L) | 12.0 - 16.0 | REFERENCE | | | | | | LAB | | | | | | [facility] | | + + + + + + | Hct | 34.7 (L) | 35 - 45 | REFERENCE | | | | | | LAB | | | | | | [facility] | | + + + + + + | MCV | 85.2 | 81 - 99 | REFERENCE | | | | | | LAB | | | | | | [facility] | | + + + + + + | RDW | 14.4 | 10.5 - 15.0 | REFERENCE | | | | | | LAB | | | | | | [facility] | | + + + + + + | MCH | 28 | 27 - 33 | REFERENCE | | | | | | LAB | | | | | | [facility] | | + + + + + + | MCHC | 33 | 30 - 36 | REFERENCE | | | | | | LAB | | | | | | [facility] | | + + + + + + | Platelet | 235 | 140 - 440 | REFERENCE | | | Count | | | LAB | | | | | | [facility] | | + + + + + + | % | 49.1 | 39 - 80 | REFERENCE | | | Neutrophils | | | LAB | | | | | | [facility] | | + + + + + + | % | 39.9 | 24 - 44 | REFERENCE | | | Lymphocytes | | | LAB | | | | | | [facility] | | + + + + + + | Monocyte % | 7.5 | 0 - 12 | REFERENCE | | | | | | LAB | | | | | | [facility] | | + + + + + + | Eosinophils | 2.6 | 0 - 6 | REFERENCE | | | % | | | LAB | | | | | | [facility] | | + + + + + + | Basophils % | 0.9Comment: This | 0 - 2 | REFERENCE | | | | patient has refused | | LAB | | | | test(s) ordered because | | [facility] | | | | it was not covered by | | | | | | Medicare or other | | | | | | insurance carrier based | | | | | | on the diagnosis given, | | | | | | or due to the stephenson of | | | | | | the testing. If you have | | | | | | any questions please | | | | | | call Client Services at | | | | | | [phone]. | | | | + + + + + + + + | Specimen | + + | | + + + + + | Narrative | Performed At | + + + | Testing Performed at: [facility] CLIA: [id number] - [address] | REFERENCE LAB | | [place] [address] | [facility] | + + + + + + + + | Performing | Address | City/State/Zipcode | Phone Number | | Organization | | | | + + + + + | REFERENCE LAB | [address] | [place] [address] | [phone] | | [facility] | | | | + + + + + | REFERENCE LAB | [address] | [place] [address] | [phone] | | [facility] | | | | + + + + + documented in this encounter Visit Diagnoses + + | Diagnosis | + + | Left hip pain - Primary Pain in joint, pelvic region and thigh | + + documented in this encounter"
--- OUTSIDE RECORDS SUMMARY | ~2019-05-28 | XMS | Encounter Summary ---
Demographics + + + | Address | [address] | | | [place] [address] | + + + | Home Phone | | + + + | Preferred Language | Unknown | + + + | Marital Status | | + + + | Yazidism Affiliation | Unknown | + + + | Race | White | + + + | Ethnic Group | Not or | + + + Author + + + | Author | [facility] | + + + | Organization | [facility] | + + + | Address | Unknown | + + + | Phone | Unavailable | + + + Support + + + + + | Name | Relationship | Address | Phone | + + + + + | Mak Ramires | [place] | [place] | | + + + + + Care Team Providers + +------+ + | Care Retail Marketing Coordinator Name | Role | Phone | + [...] as of this encounter Progress Notes Interface, Inspector Tubes In - 05/12/2006 5:09 AM [facility] DATE: 10/28/1999 [facility] SUBJECTIVE: Mrs. [...] prescription. Ford Casper M.D. CARMELO / GWENDOLYN [id number] / [id number] / [id number] / [id number] signed by Interface, Inspector Tubes In at 05/12/2006 5:09 AM PSTdocume nted in this encounter Plan of Treatment Not on filedocumented as of this encounter Visit Diagnoses Not on filedocumented in this encounter"
--- OUTSIDE RECORDS SUMMARY | ~2019-05-28 | XMS | Encounter Summary ---
Demographics + + + | Address | [address] | | | [place] [address] | + + + | Home Phone | | + + + | Preferred Language | Unknown | + + + | Marital Status | | + + + | Catholic Affiliation | 1013 | + + + | Race | Unknown | + + + | Ethnic Group | Unknown | + + + Author + + + | Author | [facility] | | | and [place] | + + + | Organization | [facility] | | | and [place] | + + + | Address | Unknown | + + + | Phone | Unavailable | + + + Support + + + + + | Name | Relationship | Address | Phone | + + + + + | Mak Ramires | ECON | [address], | | | | | [place] [address] | | + + + + + Care Team Providers + +------+ + | Care Remote Sensing Advisor Name | Role | Phone | + [...] | | [address] [place], | [address] | | | | | [place] [address] | [phone] | | | | | [phone] | | | +--------+ + + + [...]
--- OUTSIDE RECORDS SUMMARY | ~2019-05-28 | XMS | Encounter Summary ---
Demographics + + + | Address | [address] | | | [place] [address] | + + + | Home Phone | | + + + | Preferred Language | Unknown | + + + | Marital Status | | + + + | Taoist Affiliation | 1013 | + + + | Race | Unknown | + + + | Ethnic Group | Unknown | + + + Author + + + | Author | [facility] | | | and [place] | + + + | Organization | [facility] | | | and [place] | + + + | Address | Unknown | + + + | Phone | Unavailable | + + + Support + + + + + | Name | Relationship | Address | Phone | + + + + + | Mak Ramires | ECON | [address], | | | | | [place] [address] | | + + + + + Care Team Providers + +------+ + | Care Senior Abap Developer Name | Role | Phone | + +------+ + | Mehrdad Avila DO | PCP | | + +------+ + Reason for Visit + + + | Reason | Comments | + + + | Advice Only | | + + + Encounter Details +--------+ + + + + | Date | Type | Department | Care Team | Description | +--------+ + + + + | 09/13/ | Telephone | [facility] | Mehrdad Avila | Advice Only | | 2018 | | [facility] | E, DO [address] | | | | | MEDICAL [facility] | [place], [place] | | | | | [address] [place], | [address] | | | | | [place] [address] | [phone] | | | | | [phone] | | | +--------+ + + + [...]
--- OUTSIDE RECORDS SUMMARY | ~2019-05-28 | XMS | Encounter Summary ---
Demographics + + + | Address | [address] | | | [place] [address] | + + + | Home Phone [...] Author | [facility] | | | and [place] | + + + | Organization | [facility] | | | and [place] | + + + | Address | Unknown | + + + | Phone | Unavailable | + + + Support + + + + + | Name | Relationship | Address | Phone | + + + + + | Mak Ramires | ECON | [address], | | | | | [place] [address] | | + + + + + Care Team Providers + +------+ + | Care Family And Consumer Science Professor Name | Role | Phone | [...] Advice Only | | 2018 | | [facility] | E, DO [address] | | | | | MEDICAL CLIN[address] | [place], [place] | | | | | [address] [place], | [address] | | | | | [place] [address] | [phone] | | | | | [phone] | | | +--------+ + + + [...]
--- OUTSIDE RECORDS SUMMARY | ~2019-05-28 | XMS | Encounter Summary ---
Demographics + + + | Address | [address] | | | [place] [address] | + + + | Home Phone | | + + + | Preferred Language | Unknown | + + + | Marital Status | | + + + | Buddhist Affiliation | 1013 | + + + | Race | Unknown | + + + | Ethnic Group | Unknown | + + + Author + + + | Author | [facility] | | | and [place] | + + + | Organization | [facility] | | | and [place] | + + + | Address | Unknown | + + + | Phone | Unavailable | + + + Support + + + + + | Name | Relationship | Address | Phone | + + + + + | Mak Ramires | ECON | [address], | | | | | [place] [address] | | + + + + + Care Team Providers + +------+ + | Care Faro Dealer Name | Role | Phone | + [...] affective | | 2019 | Visit | [facility] | E, DO [address] | disorder (HCC) | | | | [facility] | [place] [facility], [place] | (Primary Dx); | | | | [address] [place], | [address] | Hypothyroidism, | | | | [place] [address] | [phone] | unspecified type; | | | | [phone] | | Anemia, chronic | | | [...] before breakfast -Go to [facility] in [place] to repeat TSH -Take Occult Cards to [facility] in [place] when completed. documented in this encounter Progress [...] before breakfast -Go to [facility] in [place] to repeat TSH -Take Occult Cards to [facility] in [place] when completed. 60 minute visit with > 50% time spent in counseling. Subjective: SRINIVASAN Knight presents to the clinic today to re-establish care with me from [facility], and discuss depression. She just came out a long period of depression. In March 2018 her son took a nose dive in drug and alcohol addiction and hit rock bottom. Then his cut communication off. Her son is now in [place] and got treatment and is now sober, [...] mammogram 03/2018, she is being followed by [facility] in [place]. Current Outpatient Prescriptions Medication Sig Dispense Refill alendronate (FOSAMAX) 70 mg tablet Take 70 mg by mouth every 7 days. amitriptyline (ELAVIL) 10 mg tablet Take 2.5 mg by mouth nightly. sfzyscz-ghwuzyvrlsypp-djbeoisz (EXCEDRIN MIGRAINE) 250-250-65 MG per tablet Take [...] (MACULAR HEALTH FORMULA PO) Take by mouth. [place]-3 Fatty Acids (PRO NUTRIENTS OMEGA 3) 332.5 [...] of Onset Alzheimer's disease Mother Stroke Father [place] Heart disease Father Other (see comment) Sister [...] accurately reflects the service I personally perfo [facility] and the decisions made by me. documented [...]
--- OUTSIDE RECORDS SUMMARY | ~2019-05-28 | XMS | Encounter Summary ---
Demographics + + + | Address | [address] | | | [place] [address] | + + + | Home Phone | | + + + | Preferred Language | Unknown | + + + | Marital Status | | + + + | Synagogue Affiliation | 1013 | + + + | Race | Unknown | + + + | Ethnic Group | Unknown | + + + Author + + + | Author | [facility] | | | and [place] | + + + | Organization | [facility] | | | and [place] | + + + | Address | Unknown | + + + | Phone | Unavailable | + + + Support + + + + + | Name | Relationship | Address | Phone | + + + + + | Mak Ramires | ECON | [address], | | | | | [place] [address] | | + + + + + Care Team Providers + +------+ + | Care Clinical Quality Manager Name | Role | Phone | + +------+ + | Mehrdad Avila DO | PCP | | + +------+ + Reason for Visit + + + | Reason | Comments | + + + | Lab Order | | + + + Encounter Details +--------+ + + + + | Date | Type | Department | Care Team | Description | +--------+ + + + + | 08/06/ | Telephone | [facility] | Mehrdad Avila | Lab Order | | 2019 | | [facility] | E, DO [address] | | | | | MEDICAL CLINIC [address] | [place], [place] | | | | | [address] [place], | [address] | | | | | [place] [address] | [phone] | | | | | [phone] | | | +--------+ + + + [...] + | THYROID STIMULATING | Routin | 08/30/2018 | | Results for this | | HORMONE 3RD GEN | e | 7:59 AM | | procedure are in the | | | | PDT | | results section. | + +--------+ + + + | URINALYSIS WITH | Routin | 08/30/2018 | | Results for this | | MICROSCOPIC WITH | e | 7:59 AM | | procedure are in the | | CULTURE IF INDICATED | | PDT | | results section. | + +--------+ + + + | LIPID PANEL | Routin | 08/30/2018 | | Results for this | | | e | 7:59 AM | | procedure are in the | | | | PDT | | results section. | + +--------+ + + + | VITAMIN D, | Routin | 08/30/2018 | | Results for this | | DEFICIENCY SCREEN | e | 7:59 AM | | procedure are in the | | (25-HYDROXY) | | PDT | | results section. | + +--------+ + + + | CBC WITH | Routin | 08/30/2018 | | Results for this | | DIFFERENTIAL | e | 7:59 AM | | procedure are in the | | | | PDT | | results section. | + +--------+ + + + | COMPREHENSIVE | Routin | 08/30/2018 | | Results for this | | METABOLIC PANEL | e | 7:59 AM | | procedure are in the | | | | PDT | | results section. | + +--------+ + + + documented in this encounter Results Thyroid Stimulating Hormone 3rd Gen (08/30/2018 7:59 AM PDT) + + + + + + | Component | Value | Ref Range | Performed | Pathologist | | | | | At | Signature | + + + + + + | TSH | 4.22 (H)Comment: | 0.270 - 4.20 | REFERENCE | | | | Biotin in specimens | | LAB | | | | taken from patients on | | [facility] | | | | high-dose biotin therapy | | | | | | or supplements may | | | | | | intefere with this test | | | | | | and cause inaccurate | | | | | | test results. It is | | | | [...] biotin | | | | | | administration. | | | | + + + + + + + + | Specimen | + + | | + + + + + | Narrative | Performed At | + + + | Testing Performed at: [facility] CLIA: [id number] - [address] | REFERENCE LAB | | [place] [address] | [facility] | + + + + + + + + | Performing | Address | City/State/Zipcode | Phone Number | | Organization | | | | + + + + + | REFERENCE LAB | [address] | [place] [address] | [phone] | | [facility] | | | | + + + + + | REFERENCE LAB | [address] | [place] [address] | [phone] | | [facility] | | | | + + + + + Vitamin D, Deficiency Screen (25-Hydroxy) (08/30/2018 7:59 AM PDT) + + + + + + | Component | Value | Ref Range | Performed | Pathologist | | | | | At | Signature | + + + + + + | 25-HYDROXY | 77Comment: Deficiency: | 30 - 100 | REFERENCE | | | D3 | Less than 10 | | LAB | | | | ng/mLInsufficiency: | | [facility] | | | | 10-29 ng/mLOptimum | | | | | | Level: 30-100 | | | | | | ng/mLPossible Toxicity: | | | | | | Greater than 100 ng/mL | | | | | | | | | | + + + + + + + + | Specimen | + + | | + + + + + | Narrative | Performed At | + + + | Testing Performed at: [facility] CLIA: [id number] - [address] | REFERENCE LAB | | [place] [address] | [facility] | + + + + + + + + | Performing | Address | City/State/Zipcode | Phone Number | | Organization | | | | + + + + + | REFERENCE LAB | [facility] | [place] [address] | [phone] | | [facility] | | | | + + + + + | REFERENCE LAB | [facility] | [place] [address] | [phone] | | [facility] | | | | + + + + + Comprehensive Metabolic Panel (08/30/2018 7:59 AM PDT) + + + + + + | Component | Value | Ref Range | Performed | Pathologist | | | | | At | Signature | + + + + + + | Sodium | 143 | 132 - 143 | REFERENCE | [...] + + + + | Carbon | 23 | 19 - 31 | REFERENCE | | | dioxide | | | LAB | | | | | | [facility] | | + + + + + + | Anion Gap | 16.0 | 7 - 21 | REFERENCE | | | | | | LAB | | | | | | [facility] | | + + + + + + | Glucose | 96 | 70 - 100 | REFERENCE | | | | | | LAB | | | | | | [facility] | | + + + + + + | BUN | 18 | 6 - 23 | REFERENCE | | | | | | LAB | | | | | | [facility] | | + + + + + + | Creatinine | 0.85 | 0.70 - 1.18 | REFERENCE | | | | | | LAB | | | | | | [facility] | | + + + + + + | GFR | 66 | | REFERENCE | | | ESTIMATE | | | LAB | | | | | | [facility] | | + + + + + + | BUN/Creatin | 21.2 | 6.0 - 28.6 | REFERENCE | [...] + + + | ALT (SGPT) | 12 | 7 - 52 | REFERENCE | | | (REF) | | | LAB | | | | | | [facility] | | + + + + + + | ALK PHOS | 42 | 31 - 130 | REFERENCE | [...] + + + + | Protein, | 5.7 (L) | 6.0 - 8.3 | REFERENCE | | | Total | | | LAB | | | | | | [facility] | | + + + + + + | Albumin | 3.5 | 3.5 - 5.0 | REFERENCE | [...] + + + | A/G Ratio | 1.6Comment: | 1.1 - 2.4 | REFERENCE | [...] | | | | change as of 01/07/2018. | | | | + + + + + + + + | Specimen | + + | | + + + + + | Narrative | Performed At | + + + | Testing Performed at: [facility] CLIA: [id number] - [address] | REFERENCE LAB | | [place] [address] | [facility] | + + + + + + + + | Performing | Address | City/State/Zipcode | Phone Number | | Organization | | | | + + + + + | REFERENCE LAB | [address] [place] | [place] [address] | [phone] | | [facility] | | | | + + + + + | REFERENCE LAB | [facility] [place] | [place] [address] | [phone] | | [facility] | | | | + + + + + Lipid Panel (08/30/2018 7:59 AM PDT) + +---------+ + + + | Component | Value | Ref Range | Performed | Pathologist | | | | | At | Signature | + +---------+ + + + | Cholesterol | 211 (H) | OPT: <200 | REFERENCE | | | | | | LAB | | | | | | [facility] | | + +---------+ + + + | Triglycerid | 103 | 30 - 150 | REFERENCE | | | es | | | LAB | | | | | | [facility] | | + +---------+ + + + | HDL | 51.0 | OPT: >40 | REFERENCE | | | Cholesterol | | | LAB | | | | | | [facility] | | + +---------+ + + + | LDL | 139 (H) | OPT: <100 | REFERENCE | | | Cholesterol | | | LAB | | | | | | [facility] | | + +---------+ + + + | Cholesterol | 21 | 4 - 40 | REFERENCE | | | in VLDL | | | LAB | | | | | | [facility] | | + +---------+ + + + | Chol/HDL | 4.1 | OPT: <4.44 | REFERENCE | | | Ratio | | | LAB | | | | | | [facility] | | + +---------+ + + + | Non-HDL | 160 (H) | OPT: <130 | REFERENCE | | | Cholesterol | | | LAB | | | | | | [facility] | | + +---------+ + + + + + | Specimen | + + | | + + + + + | Narrative | Performed At | + + + | Testing Performed at: [facility] CLIA: [id number] - [address] | REFERENCE LAB | | [place] [address] | [facility] | + + + + + + + + | Performing | Address | City/State/Zipcode | Phone Number | | Organization | | | | + + + + + | REFERENCE LAB | [facility] | [place] [address] | [phone] | | [facility] | | | | + + + + + | REFERENCE LAB | [address] [facility] | [place] [address] | [phone] | | [facility] | | | | + + + + + Urinalysis with Microscopic with Culture if Indicated (08/30/2018 7:59 AM PDT) + + + + + + [...] + + + | Clarity, UA | CLOUDY | | REFERENCE | | | | | | LAB | | | | | | [facility] | | + + + + + + | Specific | 1.015 | 1.005 - 1.030 | REFERENCE | | | [place] | | | LAB | | | [...] + + + + | Urobilinoge | NORMAL | normal | REFERENCE | | | n, Ur | | | LAB | | | | | | [facility] | | + + + + + + | Leukocyte | NEGATIVE | negative | REFERENCE | | | esterase, | | | LAB | | | UA | | | [facility] | | + + + + + + | Cast Type | HYALINE 1+ | 0-1+ Hyaline | REFERENCE | | | | | | LAB | | | | | | [facility] | | + + + + + + | WBC, UA | 5 (H) | 0 - 4 | REFERENCE | | | | | | LAB | | | | | | [facility] | | + + + + + + | RBC, UA | 2 | 0 - 4 | REFERENCE | | | | | | LAB | | | | | | [facility] | | + + + + + + | Squamous | NEGATIVE | 0-1+ Squamous | REFERENCE | | [...] + + + + | Bacteria, | NEGATIVE | negative | REFERENCE | | | UA | | | LAB | | | | | | [facility] | | + + + + + + + + | Specimen | + + | | + + + + + | Narrative | Performed At | + + + | Testing Performed at: [facility] CLIA: [id number] - [address] | REFERENCE LAB | | [place] [address] | [facility] | + + + + + + + + | Performing | Address | City/State/Zipcode | Phone Number | | Organization | | | | + + + + + | REFERENCE LAB | [address] [facility] | [place] [address] | [phone] | | [facility] | | | | + + + + + | REFERENCE LAB | [address] [facility] | [place] [address] | [phone] | | [facility] | | | | + + + + + CBC with Differential (08/30/2018 7:59 AM PDT) + + + + + + | Component | Value | Ref Range | Performed | Pathologist | | | | | At | Signature | + + + + + + | WBC | 4.8 | 4.5 - 11.0 | REFERENCE | | | | | | LAB | | | | | | [facility] | | + + + + + + | RBC Count | 3.89 | 3.8 - 5.1 | REFERENCE | | | | | | LAB | | | | | | [facility] | | + + + + + + | Hemoglobin | 10.8 (L) | 12.0 - 16.0 | REFERENCE | | | | | | LAB | | | | | | [facility] | | + + + + + + | Hct | 33.1 (L) | 35 - 45 | REFERENCE | | | | | | LAB | | | | | | [facility] | | + + + + + + | MCV | 85.1 | 81 - 99 | REFERENCE | | | | | | LAB | | | | | | [facility] | | + + + + + + | RDW | 14.3 | 10.5 - 15.0 | REFERENCE | [...] + + + + | Platelet | 285 | 140 - 440 | REFERENCE | | | Count | | | LAB | | | | | | [facility] | | + + + + + + | % | 51.0 | 39 - 80 | REFERENCE | | | Neutrophils | | | LAB | | | | | | [facility] | | + + + + + + | % | 38.8 | 24 - 44 | REFERENCE | | | Lymphocytes | | | LAB | | | | | | [facility] | | + + + + + + | Monocyte % | 7.0 | 0 - 12 | REFERENCE | | | | | | LAB | | | | | | [facility] | | + + + + + + | Eosinophils | 2.1 | 0 - 6 | REFERENCE | | | % | | | LAB | | | | | | [facility] | | + + + + + + | Basophils % | 1.1 | 0 - 2 | REFERENCE | | | | | | LAB | | | | | | [facility] | | + + + + + + + + | Specimen | + + | | + + + + + | Narrative | Performed At | + + + | Testing Performed at: [facility] ESTEBANIA: [id number] - [address] | REFERENCE LAB | | [place] [address] | [facility] | + + + + + + + + | Performing | Address | City/State/Zipcode | Phone Number | | Organization | | | | + + + + + | REFERENCE LAB | [address] | [place] [address] | [phone] | | [facility] | | | | + + + + + | REFERENCE LAB | [address] | [place] [address] | [phone] | | [facility] | | | | + + + + + documented in this encounter Visit Diagnoses Not on filedocumented in this encounter"
--- OUTSIDE RECORDS SUMMARY | ~2019-05-28 | XMS | Encounter Summary ---
Demographics + + + | Address | [address] | | | [place] [address] | + + + | Home Phone | | + + + | Preferred Language | Unknown | + + + | Marital Status | | + + + | Mu-Ism Affiliation | 1013 | + + + | Race | Unknown | + + + | Ethnic Group | Unknown | + + + Author + + + | Author | [facility] | | | and [place] | + + + | Organization | [facility] | | | and [place] | + + + | Address | Unknown | + + + | Phone | Unavailable | + + + Support + + + + + | Name | Relationship | Address | Phone | + + + + + | Mak Ramires | ECON | [address], | | | | | [place] [address] | | + + + + + Care Team Providers + +------+ + | Care Dental Intern Name | Role | Phone | + +------+ + | Mehrdad Avila DO | PCP | | + +------+ + Reason for Visit + + + | Reason | Comments | + + + | Depression | Seasonal affective disorder (HCC), follow up. Patient states she | | | has been doing great through the summer | + + + Encounter Details +--------+---------+ + + + | Date | Type | Department | Care Team | Description | +--------+---------+ + + + | 03/24/ | Office | [facility] | Mehrdad Avila | Seasonal affective | | 2019 | Visit | [facility] | E, DO [address] | disorder (HCC) | | | | MEDICAL CLINIC [address] | [place], [place] | (Primary Dx); | | | [address] [facility], | [address] | Immunization due | | | | [place] [address] | [phone] | | | | | [phone] | | | +--------+---------+ + + + Social History [...] + + + documented in this encounter Progress Notes Mehrdad Avila DO - 03/24/2019 8:20 AM PDT Patient ID: Antonia Ramires is a 74 y.o. year old female Chief Complaint: Chief Complaint Patient presents with Depression Seasonal affective disorder (HCC), follow up. Patient states she has been doing great thr ough the summer Assessment 1. Seasonal affective disorder (HCC) - FLUoxetine (PROZAC) 10 mg capsule; Take 1 capsules by mouth daily (with breakfast). Disp ense: 90 capsule; Refill: 1 2. Immunization due Plan: -PHQ9: 1 -Initiated Prozac 10 mg QAM. Risks and benefits of medication reviewed. Ok to discontinue w hen edward weather returns. -Recommended melatonin 1 mg QHS rather than amitriptyline. -Flu shot provided today Subjective: HPI: Patient presents to the clinic for f/u of seasonal affective disorder. She has a history of seasonal affective disorder, controlled with full spectrum light and v itamin d supplementation. The patient states that her mood was significantly improved over t he summer. Also has routine contact with counselor. Only reports one episode of depression o thomas the summer. However, she is concerned that her mood will decline again with weather hilliard ges. Interested in starting a medication. Last used SSRIs over 20 years ago which "knocked h er out" when used for 3 days. The patient is taking 1/4 tablet of amitriptyline 10 mg QHS. She states that this helps her sleep and if she doesn't take it, she is unable to sleep. Echo was performed in 2017. Current Outpatient Medications Medication Sig Dispense Refill amitriptyline (ELAVIL) 10 mg tablet Take 2.5 mg by mouth nightly. pwlfvvd-azrgeftogarao-dmwlbmjk (EXCEDRIN MIGRAINE) 250-250-65 MG per tablet Take 1 tabl et by mouth every 6 hours as needed for Pain. Calcium Carbonate (CALCIUM 600 PO) Take by mouth. cholecalciferol (CHOLECALCIFEROL) 1000 units TABS Take 1,000 Units by mouth Daily. ciclopirox (PENLAC) 8 % solution Apply topically nightly. fluticasone (FLONASE) 50 mcg/nasal spray 1 spray by Nasal route Daily. 15.8 mL 11 Levocetirizine Dihydrochloride (XYZAL PO) Take by mouth Daily. levothyroxine (SYNTHROID) 100 mcg tablet Take 1 tablet by mouth every morning (before b reakfast). 90 tablet 3 Multiple Vitamins-Minerals (CENTRUM SILVER 50+WOMEN PO) Take by mouth. Multiple Vitamins-Minerals (MACULAR HEALTH FORMULA PO) Take by mouth. [place]-3 Fatty Acids (PRO NUTRIENTS OMEGA 3) 332.5 [...] of Onset Alzheimer's disease Mother Stroke Father [place] Heart disease Father Other (see comment) Sister spinal stenosis Diabetes Maternal Grandmother Past Surgical History: Procedure Laterality Date COLECTOMY 2011 Partial colectomy with ostomy placement (taken down 08/2011) COLONOSCOPY 06/26/2014 HERNIA REPAIR Incisional TOTAL HIP ARTHROPLASTY Left 07/2016 Social History Socioeconomic History Marital status: Spouse name: Cristian Number of children: Not on file Years of education: Not on file Highest education level: Not on file Social Needs Financial resource strain: Not on file Food insecurity - worry: Not on file Food insecurity - inability: Not on file Transportation needs - medical: Not on file Transportation needs - non-medical: Not on file Occupational History Not on file Tobacco Use Smoking status: Never Smoker Smokeless tobacco: Never Used Substance and Sexual Activity Alcohol use: No Alcohol/week: 0.0 oz Frequency: Never Binge frequency: Never Drug use: Never Sexual activity: Yes Partners: Male control/protection: Post-menopausal Other Topics Concern Not on file 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 Cardiovascular: Negative for chest pain and palpitations. Psychiatric/Behavioral: Positive for sleep disturbance. Negative for behavioral problems an d dysphoric mood. Objective: Vitals: BP 132/74 Comment: Med cuff, right arm | Pulse 50 Comment: R | Resp 16 | Ht 1.66 m (5' 5.3 5") Comment: Stated | Wt 70.4 kg (155 lb 3.2 oz) | LMP (LMP Unknown) | SpO2 98% Comment: RA | ? No | BMI 25.55 kg/m Physical Exam Constitutional: She is oriented to person, place, and time. She appears well-developed and well-nourished. HENT: Head: Normocephalic and atraumatic. Right Ear: External ear normal. Left Ear: External ear normal. Nose: Nose normal. Mouth/Throat: Oropharynx is clear and moist. No oropharyngeal exudate. Eyes: Pupils are equal, round, and reactive to light. Conjunctivae are normal. Neck: Normal range of motion. No thyromegaly present. Cardiovascular: Normal rate and regular rhythm. Murmur heard. Pulmonary/Chest: Effort normal and breath sounds normal. Abdominal: Soft. Bowel sounds are normal. Neurological: She is alert and oriented to person, place, and time. Psychiatric: She has a normal mood and affect. Her behavior is normal. Thought content norm al. PHQ9 Depression scale: Date of Last Screening Total Score 1 (03/24/19 0830) (Printable questionnaires in [place] ) Interpretation of Total Score: 1-4 = Minimal depression, 5-9 = Mild depression, 10-14 = Mod erate depression, 15-19 = Moderately severe depression, 20-27 = Severe depression This documentation prepared by Tamar Paige, certified medical dosimetrist. All aspects of this chart re viewed for accuracy and content by Mehrdad Avila DO at the date and time of service. Electronically signed by: Dr. Mehrdad Avila DO 03/24/2019 9:02 documented in this encounter Plan of Treatment Not on filedocumented as of this encounter Visit Diagnoses + + | Diagnosis | + + | Seasonal affective disorder (HCC) - Primary Other specified episodic mood disorder | + + | Immunization due Need for prophylactic vaccination and inoculation against | | unspecified single disease | + + documented in this encounter
--- OUTSIDE RECORDS SUMMARY | ~2019-05-28 | XMS | Encounter Summary ---
Demographics + + + | Address | [address] | | | [place] [address] | + + + | Home Phone | | + + + | Preferred Language | Unknown | + + + | Marital Status | | + + + | Gnosticism Affiliation | 1013 | + + + | Race | Unknown | + + + | Ethnic Group | Unknown | + + + Author + + + | Author | [facility] | | | and [place] | + + + | Organization | [facility] | | | and [place] | + + + | Address | Unknown | + + + | Phone | Unavailable | + + + Support + + + + + | Name | Relationship | Address | Phone | + + + + + | Mak Ramires | ECON | [address], | | | | | [place] [address] | | + + + + + Care Team Providers + +------+ + | Care Silk Screener Name | Role | Phone | + +------+ + PCP | Unavailable | + +------+ + Encounter Details +--------+ + + + + | Date | Type | Department | Care Team | Description | +--------+ + + + + | 06/26/ | Hospital | [facility] | | | | 1999 | Encounter | MED CTR XRAY [address] | | | | | | [place] | | | | | | [place] [address] | | | | | | [phone] | | | +--------+ + + + [...]
--- OUTSIDE RECORDS SUMMARY | ~2019-05-28 | XMS | Encounter Summary ---
Demographics + + + | Address | [address] | | | [place] [address] | + + + | Home Phone | | + + + | Preferred Language | Unknown | + + + | Marital Status | | + + + | Scientology Affiliation | 1013 | + + + | Race | Unknown | + + + | Ethnic Group | Unknown | + + + Author + + + | Author | [facility] | | | and [place] | + + + | Organization | [facility] | | | and [place] | + + + | Address | Unknown | + + + | Phone | Unavailable | + + + Support + + + + + | Name | Relationship | Address | Phone | + + + + + | Mak Ramires | ECON | [address], | | | | | [place] [address] | | + + + + + Care Team Providers + +------+ + | Care Certified Endoscopy Technician Name | Role | Phone | [...] | +--------+ + + + + | 12/08/ | Telephone | MICHELLE RONKAYLEE | Mehrdad Avila | Lab Results | | 2019 | | [facility] | E, DO [address] | | | | | MEDICAL CLIN[facility] [address] | [place], [place] | | | | | [address] [place], | [address] | | | | | [place] [address] | [phone] | | | | | [phone] | | | +--------+ + + + [...]
--- OUTSIDE RECORDS SUMMARY | ~2019-05-28 | XMS | Encounter Summary ---
Demographics + + + | Address | [address] | | | [place] [address] | + + + | Home Phone [...] Author | [facility] | | | and [place] | + + + | Organization | [facility] | | | and [place] | + + + | Address | Unknown | + + + | Phone | Unavailable | + + + Support + + + + + | Name | Relationship | Address | Phone | + + + + + | Mak Ramires | ECON | [address], | | | | | [place] [address] | | + + + + + Care Team Providers + +------+ + | Care Head Of Sales Name | Role | Phone | + +------+ + | Mehrdad Avila DO | PCP | | + +------+ + Reason for Visit + + + | Reason | Comments | + + + | Lab Order | José Luis for 08-05-18*labs prior to appt? | + + + Encounter Details +--------+ + + + + | Date | Type | Department | Care Team | Description | +--------+ + + + + | 08/04/ | Telephone | MICHELLE FIGUEROA | Mehrdad Avila | Lab Order (Ok for | | 2018 | | [facility] | E, DO [address] | 08-05-18*labs prior | | | | MEDICAL CLINIC [address] | [place], [place] | to appt?) | | | | [place], | [address] | | | | | [place] [address] | [phone] | | | | | [phone] | | | +--------+ + + + [...] of this encounter Plan of Treatment + +------+--------+ + + | Name | Type | Priori | Associated Diagnoses | Order Schedule | | | | ty | | | + +------+--------+ + + | CBC with | Lab | Routin | Screening for | Expected: | | Differential | | e | deficiency anemia | 08/05/2018, Expires: | | | | | | 08/05/2019 | + +------+--------+ + + | Comprehensive | Lab | Routin | Screening for | Expected: | | Metabolic Panel | | e | cardiovascular | 08/05/2018, Expires: | | | | | condition | 08/05/2019 | + +------+--------+ + + | Lipid Panel | Lab | Routin | Screening for | Expected: | | | | e | cardiovascular | 08/05/2018, Expires: | | | | | condition | 08/05/2019 | + +------+--------+ + + | TSH | Lab | Routin | Fatigue, | Expected: | | | | e | unspecified type | 08/05/2018, Expires: | | | | | | 08/05/2019 | + +------+--------+ + + | Urinalysis with | Lab | Routin | Nocturia | Expected: | | Microscopic with | | e | | 08/05/2018, Expires: | | Culture if Indicated | | | | 08/05/2019 | + +------+--------+ + + | Vitamin D, | Lab | Routin | Encounter for | Expected: | | Deficiency Screen | | e | vitamin deficiency | 08/05/2018, Expires: | | (25-Hydroxy) | | | screening | 08/05/2019 | + +------+--------+ + + documented as of this encounter Visit Diagnoses + + | Diagnosis | + + | Nocturia - Primary | + + | Encounter for vitamin deficiency screening Screening for other and unspecified | | endocrine, nutritional, metabolic, and immunity disorders | + + | Screening for cardiovascular condition Screening for other and unspecified | | cardiovascular conditions | + + | Screening for deficiency anemia Screening for other and unspecified deficiency anemia | + + | Fatigue, unspecified type | + + documented in this encounter"
--- OUTSIDE RECORDS SUMMARY | ~2019-05-28 | XMS | Encounter Summary ---
Demographics + + + | Address | [address] | | | [place] [address] | + + + | Home Phone | | + + + | Preferred Language | Unknown | + + + | Marital Status | | + + + | Congregational Affiliation | 1013 | + + + | Race | Unknown | + + + | Ethnic Group | Unknown | + + + Author + + + | Author | [facility] | | | and [place] | + + + | Organization | [facility] | | | and [place] | + + + | Address | Unknown | + + + | Phone | Unavailable | + + + Support + + + + + | Name | Relationship | Address | Phone | + + + + + | Mak Ramires | ECON | [address], | | | | | [place] [address] | | + + + + + Care Team Providers + +------+ + | Care Energy Analyst Name | Role | Phone | + +------+ + PCP | Unavailable | + +------+ + Encounter Details +--------+ + + + + | Date | Type | Department | Care Team | Description | +--------+ + + + + | 03/06/ | Hospital | [facility] | | | | 1992 | Encounter | MED CTR XRAY [address] | | | | | | [place] | | | | | | [place] [address] | | | | | | [phone] | | | +--------+ + + + [...]
--- OUTSIDE RECORDS SUMMARY | ~2019-05-28 | XMS | Encounter Summary ---
Demographics + + + | Address | [address] | | | [place] [address] | + + + | Home Phone | | + + + | Preferred Language | Unknown | + + + | Marital Status | | + + + | Tenriism Affiliation | 1013 | + + + | Race | Unknown | + + + | Ethnic Group | Unknown | + + + Author + + + | Author | [facility] | | | and [place] | + + + | Organization | [facility] | | | and [place] | + + + | Address | Unknown | + + + | Phone | Unavailable | + + + Support + + + + + | Name | Relationship | Address | Phone | + + + + + | Mak Ramires | ECON | [address], | | | | | [place] [address] | | + + + + + Care Team Providers + +------+ + | Care Director Oncology Name | Role | Phone | + [...] (Ok for | | 2018 | | [facility] | E, DO [address] | 08-05-18*labs prior | | | | MEDICAL CLINIC [address] | [place], [place] | to appt?) | | | | [place], | [address] | | | | | [place] [address] | [phone] | | | | | [phone] | | | +--------+ + + + [...]
--- OUTSIDE RECORDS SUMMARY | ~2019-05-28 | XMS | Encounter Summary ---
Demographics + + + | Address | [address] | | | [place] [address] | + + + | Home Phone | | + + + | Preferred Language | Unknown | + + + | Marital Status | | + + + | Yarsanism Affiliation | 1013 | + + + | Race | Unknown | + + + | Ethnic Group | Unknown | + + + Author + + + | Author | [facility] | | | and [place] | + + + | Organization | [facility] | | | and [place] | + + + | Address | Unknown | + + + | Phone | Unavailable | + + + Support + + + + + | Name | Relationship | Address | Phone | + + + + + | Mak Ramires | ECON | [address], | | | | | [place] [address] | | + + + + + Care Team Providers + +------+ + | Care Educational Aide Name | Role | Phone | + [...] Order | | 2019 | | [facility] | E, DO [address] | | | | | MEDICAL CLINIC [address] | [place], [place] | | | | | [address] [place], | [address] | | | | | [place] [address] | [phone] | | | | | [phone] | | | +--------+ + + + [...] Testing Performed at: [facility] [place] [facility] CLIA: [id number] - [address] | REFERENCE LAB | | [place] [address] | [facility] | + + + + + + + + | Performing | Address | City/State/Zipcode | Phone Number | | Organization | | | | + + + + + | REFERENCE LAB | [address] | [place] [address] | [phone] | | [facility] | | | | + + + + + | REFERENCE LAB | [address] | [place] [address] | [phone] | | [facility] | | | | [...] Testing Performed at: [facility] CLIA: [id number] - 1308 | REFERENCE LAB | | [place] [address] | [facility] | + + + + + + + + | Performing | Address | City/State/Zipcode | Phone Number | | Organization | | | | + + + + + | REFERENCE LAB | [facility] | [place] [address] | [phone] | | [facility] | | | | + + + + + | REFERENCE LAB | [facility] | [place] [address] | [phone] | | [facility] | | | | [...] Testing Performed at: [facility] CLIA: [id number] - [address] | REFERENCE LAB | | [place] [address] | [facility] | + + + + + + + + | Performing | Address | City/State/Zipcode | Phone Number | | Organization | | | | + + + + + | REFERENCE LAB | [address] [place] | [place] [address] | [phone] | | [facility] | | | | + + + + + | REFERENCE LAB | [facility] [place] | [place] [address] | [phone] | | [facility] | | | | [...] Testing Performed at: [facility] CLIA: [id number] - [address] | REFERENCE LAB | | [place] [address] | [facility] | + + + + + + + + | Performing | Address | City/State/Zipcode | Phone Number | | Organization | | | | + + + + + | REFERENCE LAB | [facility] | [place] [address] | [phone] | | [facility] | | | | + + + + + | REFERENCE LAB | [address] [facility] | [place] [address] | [phone] | | [facility] | | | | [...] - 1.030 | REFERENCE | | | [place] | | | LAB | | | [...] Testing Performed at: [facility] CLIA: [id number] - [address] | REFERENCE LAB | | [place] [address] | [facility] | + + + + + + + + | Performing | Address | City/State/Zipcode | Phone Number | | Organization | | | | + + + + + | REFERENCE LAB | [address] [facility] | [place] [address] | [phone] | | [facility] | | | | + + + + + | REFERENCE LAB | [address] [facility] | [place] [address] | [phone] | | [facility] | | | | [...] Testing Performed at: [facility] [place]: [id number] - [address] | REFERENCE LAB | | [place] [address] | [facility] | + + + + + + + + | Performing | Address | City/State/Zipcode | Phone Number | | Organization | | | | + + + + + | REFERENCE LAB | [address] | [place] [address] | [phone] | | [facility] | | | | + + + + + | REFERENCE LAB | [address] | [place] [address] | [phone] | | [facility] | | | | + + + + + documented in this encounter Visit Diagnoses Not on filedocumented in this encounter"
--- OUTSIDE RECORDS SUMMARY | ~2019-05-28 | XMS | Encounter Summary ---
Demographics + + + | Address | [address] | | | [place] [address] | + + + | Home Phone | | + + + | Preferred Language | Unknown | + + + | Marital Status | | + + + | Anabaptist Affiliation | 1013 | + + + | Race | Unknown | + + + | Ethnic Group | Unknown | + + + Author + + + | Author | [facility] | | | and [place] | + + + | Organization | [facility] | | | and [place] | + + + | Address | Unknown | + + + | Phone | Unavailable | + + + Support + + + + + | Name | Relationship | Address | Phone | + + + + + | Mak Ramires | ECON | [address], | | | | | [place] [address] | | + + + + + Care Team Providers + +------+ + | Care Staff Interpreter Name | Role | Phone | + +------+ + PCP | Unavailable | + +------+ + Encounter Details +--------+ + + + + | Date | Type | Department | Care Team | Description | +--------+ + + + + | 04/06/ | [facility] | [facility] | | | | 2002 | Encounter | MED CTR XRAY [address] | | | | | | [place] | | | | | | [place] [address] | | | | | | [phone] | | | +--------+ + + + [...]
--- OUTSIDE RECORDS SUMMARY | ~2019-05-28 | XMS | Encounter Summary ---
Demographics + + + | Address | [address] | | | [place] [address] | + + + | Home Phone | | + + + | Preferred Language | Unknown | + + + | Marital Status | | + + + | Cheondoism Affiliation | 1013 | + + + | Race | Unknown | + + + | Ethnic Group | Unknown | + + + Author + + + | Author | [facility] | | | and [place] | + + + | Organization | [facility] | | | and [place] | + + + | Address | Unknown | + + + | Phone | Unavailable | + + + Support + + + + + | Name | Relationship | Address | Phone | + + + + + | Mak Ramires | ECON | [address], | | | | | [place] [address] | | + + + + + Care Team Providers + +------+ + | Care English Language Learner Tutor Name | Role | Phone | + [...] Medication Refill | | 2018 | | [facility] | CAN MAKER | | | | | MEDICAL CLINIC [address] | | | | | | [address] [facility] [place], | | | | | | [place] [address] | | | | | | [phone] | | | +--------+--------+ + + + [...]
--- OUTSIDE RECORDS SUMMARY | ~2019-05-28 | XMS | Encounter Summary ---
Demographics + + + | Address | [address] | | | [place] [address] | + + + | Home Phone | | + + + | Preferred Language | Unknown | + + + | Marital Status | | + + + | Latter Day Affiliation | 1013 | + + + | Race | Unknown | + + + | Ethnic Group | Unknown | + + + Author + + + | Author | [facility] | | | and [place] | + + + | Organization | [facility] | | | and [place] | + + + | Address | Unknown | + + + | Phone | Unavailable | + + + Support + + + + + | Name | Relationship | Address | Phone | + + + + + | Mak Ramires | ECON | [address], | | | | | [place] [address] | | + + + + + Care Team Providers + +------+ + | Care Revenue Stamper Name | Role | Phone | + +------+ + PCP | Unavailable | + +------+ + Encounter Details +--------+ + + + + | Date | Type | Department | Care Team | Description | +--------+ + + + + | 05/16/ | Hospital | [facility] | Unknown, | | | 1993 | Encounter | MED CTR XRAY [address] | [place] | | | | | [place] | | | | | | [place] [address] | (Fax) | | | | | [phone] | | | +--------+ + + + [...]
--- OUTSIDE RECORDS SUMMARY | ~2019-05-28 | XMS | Encounter Summary ---
Demographics + + + | Address | [address] | | | [place] [address] | + + + | Home Phone | | + + + | Preferred Language | Unknown | + + + | Marital Status | | + + + | Congregation Affiliation | 1013 | + + + | Race | Unknown | + + + | Ethnic Group | Unknown | + + + Author + + + | Author | [facility] | | | and [place] | + + + | Organization | [facility] | | | and [place] | + + + | Address | Unknown | + + + | Phone | Unavailable | + + + Support + + + + + | Name | Relationship | Address | Phone | + + + + + | Mak aRmires | ECON | [address], | | | | | [place] [address] | | + + + + + Care Team Providers + +------+ + | Care Product Development Director Name | Role | Phone | + +------+ + PCP | Unavailable | + +------+ + Encounter Details +--------+ + + + + | Date | Type | Department | Care Team | Description | +--------+ + + + + | 03/06/ | Hospital | [facility] | | | | 1992 | Encounter | MED CTR XRAY [address] | | | | | | [place] | | | | | | [place] [address] | | | | | | [phone] | | | +--------+ + + + [...]
--- OUTSIDE RECORDS SUMMARY | ~2019-05-28 | XMS | Encounter Summary ---
Demographics + + + | Address | [address] | | | [place] [address] | + + + | Home Phone | | + + + | Preferred Language | Unknown | + + + | Marital Status | | + + + | Baptism Affiliation | 1013 | + + + | Race | Unknown | + + + | Ethnic Group | Unknown | + + + Author + + + | Author | [facility] | | | and [place] | + + + | Organization | [facility] | | | and [place] | + + + | Address | Unknown | + + + | Phone | Unavailable | + + + Support + + + + + | Name | Relationship | Address | Phone | + + + + + | Mak Ramires | ECON | [address], | | | | | [place] [address] | | + + + + + Care Team Providers + +------+ + | Care Cook Boat Name | Role | Phone | + +------+ + PCP | Unavailable | + +------+ + Encounter Details +--------+ + + + + | Date | Type | Department | Care Team | Description | +--------+ + + + + | 02/20/ | Hospital | [facility] | | | | 1997 | Encounter | MED CTR GENERIC OP | | | | | | CONV DEPT [address] | | | | | | [place], | | | | | | [place] [address] | | | | | | [phone] | | | +--------+ + + + [...]
--- OUTSIDE RECORDS SUMMARY | ~2019-05-28 | XMS | Encounter Summary ---
Demographics + + + | Address | [address] | | | [place] [address] | + + + | Home Phone | | + + + | Preferred Language | Unknown | + + + | Marital Status | | + + + | Restorationist Affiliation | 1013 | + + + | Race | Unknown | + + + | Ethnic Group | Unknown | + + + Author + + + | Author | [facility] | | | and [place] | + + + | Organization | [facility] | | | and [place] | + + + | Address | Unknown | + + + | Phone | Unavailable | + + + Support + + + + + | Name | Relationship | Address | Phone | + + + + + | Mak Ramires | ECON | [address], | | | | | [place] [address] | | + + + + + Care Team Providers + +------+ + | Care Supervisor Photoengraving Name | Role | Phone | + [...] JOHN | | | | | | [address] | [place], [place] | | | | | | Phone: | [address] | | | | | | [phone] | Phone: | | | | | | Fax: | [phone] | | | | | | [phone] | Fax: | | | | | | | [phone] | +--------+ + + + + + [...] Referral (Requesting | | 2019 | | [facility] | E, [address] | a referral to | | | | MEDICAL CLINIC [address] | [place], [place] | [facility] | | | | [address] [place], | [address] | physical therapy on | | | | [place] [address] | [phone] | left hip) | | | | [phone] | | | +--------+ + + + [...] [place] | | | | | | [id number] Phone: | | | | | | [...] [address] | [place] [address] | [phone] | | [facility] | | | | + + + + + | REFERENCE LAB | [address] [facility] | [place] [address] | [phone] | | [facility] | | | | [...] at | | | | | | [phone]. | | | | + + + + + + + + | Specimen | + + | | + + + + + | Narrative | Performed At | + + + | Testing Performed at: [facility] [place] [facility] CLIA: [id number] - [address] | REFERENCE LAB | | [place] [address] | [facility] | + + + + + + + + | Performing | Address | City/State/Zipcode | Phone Number | | Organization | | | | + + + + + | REFERENCE LAB | [address] | [place] [address] | [phone] | | [facility] | | | | + + + + + | REFERENCE LAB | [address] | [place] [address] | [phone] | | [facility] | | | | [...] at | | | | | | [phone]. | | | | + + + + + + + + | Specimen | + + | | + + + + + | Narrative | Performed At | + + + | Testing Performed at: [facility] CLIA: [id number] - [address] | REFERENCE LAB | | [place] [address] | [facility] | + + + + + + + + | Performing | Address | City/State/Zipcode | Phone Number | | Organization | | | | + + + + + | REFERENCE LAB | [address] | [place] [address] | [phone] | | [facility] | | | | + + + + + | REFERENCE LAB | [address] [facility] | [place] [address] | [phone] | | [facility] | | | | [...] at | | | | | | [phone]. | | | | + + + + + + + + | Specimen | + + | | + + + + + | Narrative | Performed At | + + + | Testing Performed at: [facility] [place] 1 CLIA: [id number] - [address] | REFERENCE LAB | | [place] [address] | [facility] | + + + + + + + + | Performing | Address | City/State/Zipcode | Phone Number | | Organization | | | | + + + + + | REFERENCE LAB | [address] | [place] [address] | [phone] | | [facility] | | | | + + + + + | REFERENCE LAB | [address] | [place] [address] | [phone] | | [facility] | | | | [...] - 1.030 | REFERENCE | | | [place] | | | LAB | | | [...] at | | | | | | [phone]. | | | | + + + + + + + + | Specimen | + + | | + + + + + | Narrative | Performed At | + + + | Testing Performed at: [facility] CLIA: [id number] - [address] | REFERENCE LAB | | [place] [address] | [facility] | + + + + + + + + | Performing | Address | City/State/Zipcode | Phone Number | | Organization | | | | + + + + + | REFERENCE LAB | [address] [place] | [place] [address] | [phone] | | [facility] | | | | + + + + + | REFERENCE LAB | [address] [place] | [place] [address] | [phone] | | [facility] | | | | [...] at | | | | | | [phone]. | | | | + + + + + + + + | Specimen | + + | | + + + + + | Narrative | Performed At | + + + | Testing Performed at: [facility] CLIA: [id number] - [address] | REFERENCE LAB | | [place] [address] | [facility] | + + + + + + + + | Performing | Address | City/State/Zipcode | Phone Number | | Organization | | | | + + + + + | REFERENCE LAB | [address] | [place] [address] | [phone] | | [facility] | | | | + + + + + | REFERENCE LAB | [address] | [place] [address] | [phone] | | [facility] | | | | + + + + + documented in this encounter Visit Diagnoses + + | Diagnosis | + + | Left hip pain - Primary Pain in joint, pelvic region and thigh | + + documented in this encounter"
--- OUTSIDE RECORDS SUMMARY | ~2019-05-28 | XMS | Encounter Summary ---
Demographics + + + | Address | [address] | | | [place] [address] | + + + | Home Phone [...] + | Author | [facility] | | | and [place] | + + + | Organization | [facility] | | | and [place] | + + + | Address | Unknown | + + + | Phone | Unavailable | + + + Support + + + + + | Name | Relationship | Address | Phone | + + + + + | Mak Ramires | ECON | [address], | | | | | [place] [address] | | + + + + + Care Team Providers + +------+ + | Care Door Closer Mechanic Name | Role | Phone | + [...] Lab Results | | 2019 | | [facility] | E, DO [address] | | | | | MEDICAL CLINIC [address] | [place], [place] | | | | | [address] [place], | [address] | | | | | [place] [address] | [phone] | | | | | [phone] | | | +--------+ + + + [...]
--- OUTSIDE RECORDS SUMMARY | ~2019-05-28 | XMS | Encounter Summary ---
Demographics + + + | Address | [address] | | | [place] [address] | + + + | Home Phone | | + + + | Preferred Language | Unknown | + + + | Marital Status | | + + + | Faith Affiliation | 1013 | + + + | Race | Unknown | + + + | Ethnic Group | Unknown | + + + Author + + + | Author | [facility] | | | and [place] | + + + | Organization | [facility] | | | and [place] | + + + | Address | Unknown | + + + | Phone | Unavailable | + + + Support + + + + + | Name | Relationship | Address | Phone | + + + + + | Mak Ramires | ECON | [address], | | | | | [place] [address] | | + + + + + Care Team Providers + +------+ + | Care Outside Contractor Sales Name | Role | Phone | [...] Lab Results | | 2018 | | [facility] | [facility] | | | | | MEDICAL CLINIC [address] | | | | | | [address] [place], | | | | | | [place] [address] | | | | | | [phone] | | | +--------+ + + + [...]
--- OUTSIDE RECORDS SUMMARY | ~2019-05-28 | XMS | Encounter Summary ---
Demographics + + + | Address | [address] | | | [place] [address] | + + + | Home Phone | | + + + | Preferred Language | Unknown | + + + | Marital Status | | + + + | Baptism Affiliation | 1013 | + + + | Race | Unknown | + + + | Ethnic Group | Unknown | + + + Author + + + | Author | [facility] | | | and [place] | + + + | Organization | [facility] | | | and [place] | + + + | Address | Unknown | + + + | Phone | Unavailable | + + + Support + + + + + | Name | Relationship | Address | Phone | + + + + + | Mak Ramires | ECON | [address], | | | | | [place] [address] | | + + + + + Care Team Providers + +------+ + | Care Drafter Plumbing Name | Role | Phone | + [...] 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 hcvjaam-epitzicoyqegm-krurwquo (EXCEDRIN MIGRAINE) 250-250-65 MG per tablet Take [...] (MACULAR HEALTH FORMULA PO) Take by mouth. 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 All aspects of this chart re viewed [...]
--- OUTSIDE RECORDS SUMMARY | ~2019-05-28 | XMS | Encounter Summary ---
Demographics + + + | Address | [address] | | | [place] [address] | + + + | Home Phone | | + + + | Preferred Language | Unknown | + + + | Marital Status | | + + + | Nondenominational Affiliation | 1013 | + + + | Race | Unknown | + + + | Ethnic Group | Unknown | + + + Author + + + | Author | [facility] | | | and [place] | + + + | Organization | [facility] | | | and [place] | + + + | Address | Unknown | + + + | Phone | Unavailable | + + + Support + + + + + | Name | Relationship | Address | Phone | + + + + + | Mak Ramires | ECON | [address], | | | | | [place] [address] | | + + + + + Care Team Providers + +------+ + | Care Pillow Filler Name | Role | Phone | + +------+ + | Mehrdad Avila DO | PCP | | + +------+ + Encounter Details +--------+ + + + + | Date | Type | Department | Care Team | Description | +--------+ + + + + | 08/31/ | Abstract | [facility] | Mehrdad Avila | | | 2019 | | [facility] | E, DO [address] | | | | | MEDICAL CLIN[facility] [address] | [place] | | | | | [address] [place], | [address] | | | | | [place] [address] | [phone] | | | | | [phone] | | | +--------+ + + + [...]
--- OUTSIDE RECORDS SUMMARY | ~2019-05-28 | XMS | Encounter Summary ---
Demographics + + + | Address | [address] | | | [place] [address] | + + + | Home Phone | | + + + | Preferred Language | Unknown | + + + | Marital Status | | + + + | Episcopalian Affiliation | 1013 | + + + | Race | Unknown | + + + | Ethnic Group | Unknown | + + + Author + + + | Author | [facility] | | | and [place] | + + + | Organization | [facility] | | | and [place] | + + + | Address | Unknown | + + + | Phone | Unavailable | + + + Support + + + + + | Name | Relationship | Address | Phone | + + + + + | Mak Ramires | ECON | [address], | | | | | [place] [address] | | + + + + + Care Team Providers + +------+ + | Care Wedding Consultant Name | Role | Phone | + [...] orders) | | 2019 | | [facility] | E, DO [address] | | | | | MEDICAL CLIN[facility] [address] | [place], [place] | | | | | [address] [place], | [address] | | | | | [place] [address] | [phone] | | | | | [phone] | | | +--------+ + + + [...]
[~2019-05-28 19:46] MED LIST changes: +CIPRO250 MG PO; +TOPAMAX200 MG PO
[2019-05-28] MEDS ORDERED: ZOFRAN4 MG PO (23:19)
[2019-05-28] MEDS ORDERED: NORCO 5-325 TA1 EACH PO (23:19)
== END 2019-05-28 23:40 | disposition home or self-care (01) ==
LOC: ED 19:46
DX: N13.2 Hydronephrosis with renal and ureteral calculous obstruction (principal); G43.909 Migraine, unspecified, not intractable, without status migrainosus; Z88.2 Allergy status to sulfonamides; Z88.1 Allergy status to other antibiotic agents; Z88.8 Allergy status to other drugs, medicaments and biological substances; Z79.899 Other long term (current) drug therapy
CPT/HCPCS: 74176; 80053; 81001; 83690; 85025; 96374; 96375; 99284-25; J1170; J2405

== ENCOUNTER 2020-09-17 09:19 | Emergency (ER) | payer MEDICARE, OTHER ==
[~2020-09-17] VITALS: Ht 165.1 cm; Wt 68.9 kg
[~2020-09-17 09:19] MED LIST changes: +NORCO 5-325 TA1 EACH PO; +ZOFRAN4 MG PO
[2020-09-17] MEDS ORDERED: LAMOTRIGINE25 MG PO (09:38)
== END 2020-09-17 11:01 | disposition home or self-care (01) ==
LOC: ED 09:19
DX: S53.402A Unspecified sprain of left elbow, initial encounter (principal); M81.0 Age-related osteoporosis without current pathological fracture; E03.9 Hypothyroidism, unspecified; Z88.2 Allergy status to sulfonamides; Z88.1 Allergy status to other antibiotic agents; Z88.8 Allergy status to other drugs, medicaments and biological substances; Z79.899 Other long term (current) drug therapy; W01.0XXA Fall on same level from slipping, tripping and stumbling without subsequent striking against object, initial encounter
CPT/HCPCS: 73080; 99283-25

== ENCOUNTER 2024-08-06 14:58 | Emergency (ER) | payer OTHER, MEDICARE ==
[~2024-08-06] VITALS: Ht 165.1 cm; Wt 68.0 kg
[2024-08-06] MEDS ORDERED: ACETAMINOPHEN 500 MG TAB PO ONE (16:30)
[2024-08-06] MEDS ORDERED: HYDROCODONE/ACETA 5/325 TAB PO ONE (17:15)
[2024-08-06] MEDS ORDERED: HYDROCODONE BIT/ACETAMINOPHEN 5/325 MG 1 TAB HOME.PACK PO ONE (18:15)
[2024-08-06 18:27] VITALS: BP 181/98
== END 2024-08-06 18:28 | disposition home or self-care (01) ==
LOC: ED 14:58
DX: S06.0X9A Concussion with loss of consciousness of unspecified duration, initial encounter (principal); S52.091A Other fracture of upper end of right ulna, initial encounter for closed fracture; W00.0XXA Fall on same level due to ice and snow, initial encounter; Z88.2 Allergy status to sulfonamides; Z88.1 Allergy status to other antibiotic agents; Z91.011 Allergy to milk products; Z79.899 Other long term (current) drug therapy; Z79.890 Hormone replacement therapy
CPT/HCPCS: 29105; 70450; 73080; 99284-25; A9270

== ENCOUNTER 2024-08-09 18:26 | Emergency (ER) | payer MEDICARE, OTHER ==
[~2024-08-09] VITALS: Ht 165.1 cm; Wt 69.9 kg
[~2024-08-09 18:26] MED LIST changes: +AIMOVIG AU140 MG/1 M SUB-Q; +CENTRUM SILVER1 EAC3 PO; +CEPHALEXIN500 MG PO; +DOXYCYCLINE HY100 MG PO; +DULOXETINE HCL60 MG PO; +FISH OIL 1,0001 EAC5 PO; +HYDROCODON-ACE1 EA10 PO; +LAMOTRIGINE25 MG PO; +LEVOTHYROXINE100 MCG PO; +MELATONIN3 MG PO; -MULTI VITAMIN1 EACH PO; -OMEGA-3 + D SO1 EACH PO; +PRILOSEC OTC20 MG PO; +PROPRANOLOL HC120 MG PO
--- OUTSIDE RECORDS SUMMARY | 2024-08-09 18:33 | XMS ---
PreManage Notification: QIANA BARCLAY Security Automobile Relocation Engineer Events No recent Security Events currently on file CRITERIA MET - [facility] - 2 Visits in 30 Days CARE PROVIDERS RONY MOSER [facility] 05/30/2019-[facility]: Unknown Markie has no Care Guidelines for this patient. Mannie VISIT COUNT (12 MO.) 2 [facility] TOTAL 2 NOTE: Visits indicate total known visits. ED/UCC VISIT TRACKING (12 MO.) 08/09/2024 18:27 [facility] [place] TYPE: Emergency COMPLAINT: - ARM PAIN 08/06/2024 14:58 [facility] [place] TYPE: Emergency COMPLAINT: - FELL DIAGNOSES: - Allergy status to other antibiotic agents - Allergy status to sulfonamides - Allergy to milk products - Concussion with loss of consciousness of unspecified duration, initial encounter - Fall on same level due to ice and snow, initial encounter - Headache, unspecified - Hormone replacement therapy - Other fracture of upper end of right ulna, initial encounter for closed fracture - Other sweet goods machine operator (current) drug therapy INPATIENT VISIT TRACKING (12 MO.) No inpatient visits to display in this time frame [email or web address]
[2024-08-09 20:10] VITALS: BP 143/93
== END 2024-08-09 20:10 | disposition home or self-care (01) ==
LOC: ED 18:26
DX: S42.401A Unspecified fracture of lower end of right humerus, initial encounter for closed fracture (principal); X58.XXXA Exposure to other specified factors, initial encounter; Z88.2 Allergy status to sulfonamides; Z88.1 Allergy status to other antibiotic agents; Z91.011 Allergy to milk products; Z88.8 Allergy status to other drugs, medicaments and biological substances; Z91.018 Allergy to other foods; Z79.890 Hormone replacement therapy; Z79.899 Other long term (current) drug therapy
CPT/HCPCS: 29105; 99283-25